=== PATIENT | female | born 1975 | race Two or more races ===

== ENCOUNTER → 2016-10-28 08:55 | Outpatient (CLI) | payer OTHER ==
[2016-03-13 07:19] VITALS: BMI 43.3
[~2016-10-28 08:55] MED LIST: COZAAR100 MG PO; FLORINEF 0.1 M0.1 MG PO; HYDROCODONE-APA1 TAB PO; KEFLEX500 MG PO; KLONOPIN1 MG PO; LITHIUM CARBON300 MG PO; NORCO 10/325 TA1 TA1 PO; PRINIVIL20 MG PO; PROPRANOLOL HCL20 MG PO; PROZAC20 MG PO; PROZAC40 MG PO; SEROQUEL XR150 MG PO; SEROQUEL XR300 MG PO; TENORMIN100 MG PO; VALIUM10 MG PO; ZOCOR20 MG PO
== END | disposition home or self-care (01) ==
LOC: D.RAD 08:55
DX: R11.2 Nausea with vomiting, unspecified (principal); R10.11 Right upper quadrant pain; R52 Pain, unspecified; R63.4 Abnormal weight loss

== ENCOUNTER → 2016-10-30 07:12 | Outpatient (CLI) | payer OTHER ==
[2016-03-13 07:19] VITALS: BMI 43.3
[2016-10-30 08:02] LABS: ALBUMIN 3.1 g/dL (3.4-5.0); ALKALINE PHOSPHATASE 87 U/L (46-116); ALT (SGPT) 15 U/L (10-68); PROTEIN - SERUM 7.3 g/dL (6.4-8.2)
[2016-10-30 08:06] LABS: BILIRUBIN - DIRECT < 0.05 mg/dL (0.00-0.30); BILIRUBIN - INDIRECT 0.15 mg/dL (0.00-1.00)
== END | disposition home or self-care (01) ==
LOC: D.US 07:12
PROVIDERS: Internal Medicine Gastroenterology
DX: K76.0 Fatty (change of) liver, not elsewhere classified (principal)

== ENCOUNTER 2016-12-29 17:33 | Emergency (ER) | payer OTHER ==
[2016-03-13 07:19] VITALS: BMI 43.3
[2016-12-29 19:12] LABS: BASOPHILS 0.1 % (0.0-2.0); HEMATOCRIT 39.9 % (36.0-48.0); HEMOGLOBIN 13.2 g/dL (12-16); IMMATURE GRANULOCYTES 0.3 % (0-5); LYMPHOCYTES 26.8 % (15-50); MCH 27.8 pg (26.0-34.0); MCHC 33.1 g/dL (31.0-37.0); MONOCYTES 8.4 % (2-11); NEUTROPHILS 63.4 % (40-80); PLATELET COUNT 312 10x3/uL (130-400); RBC 4.75 10x6/uL (4.00-5.40); RDW 14.2 % (11.5-14.5); WBC 14.3 10x3/uL (4.8-10.8)
[2016-12-29 19:29] LABS: ALBUMIN 3.6 g/dL (3.4-5.0); ANION GAP 14.1 mmol/L (8-16); BILIRUBIN - TOTAL 0.29 mg/dL (0.2-1.3); CALCIUM 8.8 mg/dL (8.5-10.1); CARBON DIOXIDE 24.1 mmol/L (21.0-32.0); CREATININE - SERUM 0.9 mg/dL (0.6-1.3); POTASSIUM - SERUM 3.2 mmol/L (3.5-5.1); PROTEIN - SERUM 8.3 g/dL (6.4-8.2)
[2016-12-29 19:31] LABS: APPEARANCE CLOUDY (CLEAR); BILIRUBIN NEGATIVE (NEGATIVE); COLOR YELLOW (YELLOW); GLUCOSE NEGATIVE (NEGATIVE); KETONE NEGATIVE (NEGATIVE); LEUKOCYTE ESTERASE TRACE (NEGATIVE); NITRITE NEGATIVE (NEGATIVE); PROTEIN NEGATIVE (NEGATIVE); SPECIFIC GRAVITY 1.015 (1.005-1.020); UROBILINOGEN NORMAL (NORMAL)
[2016-12-29 19:33] LABS: BACTERIA MANY /hpf (NONE SEEN); MUCUS >1+ /lpf (NONE SEEN); RED CELLS - URINE 0-5 /hpf (0-5)
== END 2016-12-30 01:26 | disposition home or self-care (01) ==
LOC: D.ER 17:33
PROVIDERS: Emergency Medicine
DX: N39.0 Urinary tract infection, site not specified (principal); K21.9 Gastro-esophageal reflux disease without esophagitis; I10 Essential (primary) hypertension; F17.200 Nicotine dependence, unspecified, uncomplicated

== ENCOUNTER 2017-03-12 20:39 | Emergency (ER) | payer OTHER ==
[2016-03-13 07:19] VITALS: BMI 43.3
[2017-03-12 21:13] LABS: BASOPHILS 0.1 % (0-2); EOSINOPHILS 1.1 % (0-7); HEMATOCRIT 39.7 % (36.0-48.0); HEMOGLOBIN 12.8 g/dL (12-16); IMMATURE GRANULOCYTES 0.2 % (0-5); LYMPHOCYTES 33.6 % (15-50); MCH 28.3 pg (26.0-34.0); MCHC 32.2 g/dL (31.0-37.0); MCV 87.8 fL (80.0-100.0); MONOCYTES 5.4 % (2-11); NEUTROPHILS 59.6 % (40-80); PLATELET COUNT 329 10x3/uL (130-400); RBC 4.52 10x6/uL (4.00-5.40); WBC 13.4 10x3/uL (4.8-10.8)
[2017-03-12 21:21] LABS: APPEARANCE CLEAR (CLEAR); BILIRUBIN NEGATIVE (NEGATIVE); COLOR YELLOW (YELLOW); GLUCOSE NEGATIVE (NEGATIVE); KETONE NEGATIVE (NEGATIVE); LEUKOCYTE ESTERASE TRACE (NEGATIVE); NITRITE NEGATIVE (NEGATIVE); PROTEIN NEGATIVE (NEGATIVE); SPECIFIC GRAVITY 1.015 (1.005-1.020); UROBILINOGEN NORMAL (NORMAL)
[2017-03-12 21:22] LABS: BACTERIA FEW /hpf (NONE SEEN); EPITHELIAL CELLS 0-5 /hpf (0-5); RED CELLS - URINE 0-5 /hpf (0-5); WHITE CELLS - URINE 0-5 /hpf (0-5)
[2017-03-12 21:34] LABS: HCG SERUM NEGATIVE (NEGATIVE)
[2017-03-12 21:38] LABS: ALBUMIN 3.5 g/dL (3.4-5.0); ANION GAP 13.1 mmol/L (8-16); BILIRUBIN - TOTAL 0.33 mg/dL (0.2-1.3); CALCIUM 8.6 mg/dL (8.5-10.1); CARBON DIOXIDE 22.5 mmol/L (21.0-32.0); CREATININE - SERUM 0.9 mg/dL (0.6-1.3); POTASSIUM - SERUM 3.6 mmol/L (3.5-5.1); PROTEIN - SERUM 7.7 g/dL (6.4-8.2)
== END 2017-03-12 23:15 | disposition home or self-care (01) ==
LOC: D.ER 20:39
PROVIDERS: Emergency Medicine
DX: R10.9 Unspecified abdominal pain (principal); K21.9 Gastro-esophageal reflux disease without esophagitis; I10 Essential (primary) hypertension; F17.200 Nicotine dependence, unspecified, uncomplicated

== ENCOUNTER 2017-06-04 20:40 | Emergency (ER) | payer OTHER ==
[2016-03-13 07:19] VITALS: BMI 43.3
[2017-06-04 22:36] LABS: APPEARANCE CLEAR (CLEAR); BILIRUBIN NEGATIVE (NEGATIVE); COLOR YELLOW (YELLOW); GLUCOSE NEGATIVE (NEGATIVE); KETONE NEGATIVE (NEGATIVE); LEUKOCYTE ESTERASE NEGATIVE (NEGATIVE); NITRITE NEGATIVE (NEGATIVE); PROTEIN NEGATIVE (NEGATIVE); SPECIFIC GRAVITY 1.025 (1.005-1.020); UROBILINOGEN NORMAL (NORMAL)
[2017-06-04 22:37] LABS: BACTERIA MODERATE /hpf (NONE SEEN); EPITHELIAL CELLS 0-5 /hpf (0-5); WHITE CELLS - URINE 0-5 /hpf (0-5)
== END 2017-06-04 23:43 | disposition home or self-care (01) ==
LOC: D.ER 20:40
PROVIDERS: Emergency Medicine
DX: M54.9 Dorsalgia, unspecified (principal); I10 Essential (primary) hypertension; K21.9 Gastro-esophageal reflux disease without esophagitis; R11.0 Nausea; F17.200 Nicotine dependence, unspecified, uncomplicated

== ENCOUNTER 2017-06-27 17:52 | Emergency (ER) | payer OTHER ==
[2016-03-13 07:19] VITALS: BMI 43.3
== END 2017-06-27 19:55 | disposition home or self-care (01) ==
LOC: D.ER 17:52
DX: M25.562 Pain in left knee (principal); I10 Essential (primary) hypertension

== ENCOUNTER 2017-07-27 11:23 | Emergency (ER) | payer OTHER ==
[2016-03-13 07:19] VITALS: BMI 43.3
[2017-07-27 11:53] LABS: BASOPHILS 0.2 % (0-2); EOSINOPHILS 0.9 % (0-7); HEMATOCRIT 41.6 % (36.0-48.0); HEMOGLOBIN 13.4 g/dL (12-16); IMMATURE GRANULOCYTES 0.1 % (0-5); LYMPHOCYTES 29.3 % (15-50); MCHC 32.2 g/dL (31.0-37.0); MCV 86.8 fL (80.0-100.0); MONOCYTES 7.3 % (2-11); NEUTROPHILS 62.2 % (40-80); PLATELET COUNT 361 10x3/uL (130-400); RBC 4.79 10x6/uL (4.00-5.40); RDW 14.7 % (11.5-14.5); WBC 9.8 10x3/uL (4.8-10.8)
[2017-07-27 12:17] LABS: ALBUMIN 3.6 g/dL (3.4-5.0); ALKALINE PHOSPHATASE 123 U/L (46-116); ALT (SGPT) 13 U/L (10-68); BILIRUBIN - TOTAL 0.16 mg/dL (0.2-1.3); CALC OSMOLALITY 272 mosm/kg (275-300); CALCIUM 9.2 mg/dL (8.5-10.1); CARBON DIOXIDE 26.5 mmol/L (21.0-32.0); CHLORIDE - SERUM 102 mmol/L (98-107); CREATININE - SERUM 0.8 mg/dL (0.6-1.3); GLUCOSE 94 mg/dL (74-106); POTASSIUM - SERUM 4.3 mmol/L (3.5-5.1); PROTEIN - SERUM 8.1 g/dL (6.4-8.2); SODIUM 137 mmol/L (136-145); UREA NITROGEN 9 mg/dL (7-18); eGFR NON AFRICAN AMERICAN 84 mL/min (90-120)
[2017-07-27 12:38] LABS: CHOL - HDL RATIO 8.1 ratio (2.3-4.1); CHOLESTEROL, TOTAL 187 mg/dL (0-200); CREATINE KINASE 50 UL (21-215); HDL CHOLESTEROL 23 mg/dL (32-96); LDL CHOLESTEROL 111 mg/dL (0-100); LDL-HDL RATIO 4.8 ratio (1.5-3.5); MAGNESIUM - SERUM 2.1 mg/dL (1.8-2.4); TRIGLYCERIDE 265 mg/dL (30-200)
[2017-07-27 12:39] LABS: TROPONIN-I < 0.017 ng/mL (0.000-0.060)
[2017-09-05] MEDS ORDERED: HYDROCODON-ACE1 EAC7 PO ×2 (10:04→10:05)
== END 2017-07-27 14:15 | disposition home or self-care (01) ==
LOC: D.ER 11:23
PROVIDERS: Emergency Medicine
DX: R07.9 Chest pain, unspecified (principal); F17.200 Nicotine dependence, unspecified, uncomplicated

== ENCOUNTER 2017-09-02 19:51 | Emergency (ER) | payer OTHER ==
[2016-03-13 07:19] VITALS: BMI 43.3
[2017-09-02 20:51] LABS: BASOPHILS 0.2 % (0-2); HEMATOCRIT 39.7 % (36.0-48.0); HEMOGLOBIN 12.9 g/dL (12-16); IMMATURE GRANULOCYTES 0.2 % (0-5); MCH 28.2 pg (26.0-34.0); MCHC 32.5 g/dL (31.0-37.0); MCV 86.7 fL (80.0-100.0); MEAN PLATELET VOLUME 9.1 fL (7.4-10.4); MONOCYTES 8.6 % (2-11); PLATELET COUNT 300 10x3/uL (130-400); RBC 4.58 10x6/uL (4.00-5.40); WBC 12.9 10x3/uL (4.8-10.8)
[2017-09-02 20:53] LABS: APPEARANCE CLEAR (CLEAR); COLOR YELLOW (YELLOW); NITRITE NEGATIVE (NEGATIVE)
[2017-09-02 20:54] LABS: BILIRUBIN NEGATIVE (NEGATIVE); GLUCOSE NEGATIVE (NEGATIVE); KETONE NEGATIVE (NEGATIVE); PROTEIN TRACE mg/dL (NEGATIVE); UROBILINOGEN NORMAL (NORMAL)
[2017-09-02 21:51] LABS: ALBUMIN 3.6 g/dL (3.4-5.0); ALKALINE PHOSPHATASE 83 U/L (46-116); ALT (SGPT) 11 U/L (10-68); AMYLASE - SERUM 38 U/L (25-115); BILIRUBIN - TOTAL 0.26 mg/dL (0.2-1.3); CALC OSMOLALITY 272 mosm/kg (275-300); CALCIUM 8.5 mg/dL (8.5-10.1); CHLORIDE - SERUM 103 mmol/L (98-107); CREATININE - SERUM 0.7 mg/dL (0.6-1.3); GLUCOSE 89 mg/dL (74-106); LIPASE 117 U/L (73-393); POTASSIUM - SERUM 3.4 mmol/L (3.5-5.1); PROTEIN - SERUM 7.3 g/dL (6.4-8.2); SODIUM 138 mmol/L (136-145); UREA NITROGEN 7 mg/dL (7-18); eGFR NON AFRICAN AMERICAN > 90 mL/min (90-120)
[2017-09-02 21:57] LABS: HCG SERUM NEGATIVE (NEGATIVE)
[2017-09-03] MEDS ORDERED: ZESTRIL20 MG PO (23:12)
[2017-09-03] MEDS ORDERED: CORLANOR PO (23:13)
[2017-09-03] MEDS ORDERED: CARDIZEM CD240 MG PO (23:15)
[2017-09-05] MEDS ORDERED: HYDROCODON-ACE1 EAC7 PO ×2 (10:04→10:05)
== END 2017-09-02 23:12 | disposition home or self-care (01) ==
LOC: D.ER 19:51
PROVIDERS: Emergency Medicine; Physician Assistant
DX: R10.31 Right lower quadrant pain (principal); R11.2 Nausea with vomiting, unspecified; I10 Essential (primary) hypertension; N28.1 Cyst of kidney, acquired; R10.9 Unspecified abdominal pain; F17.200 Nicotine dependence, unspecified, uncomplicated

== ENCOUNTER 2017-09-03 00:24 | Emergency (ER) | payer OTHER ==
[2016-03-13 07:19] VITALS: BMI 43.3
[2017-09-03 00:59] LABS: BASOPHILS 0.2 % (0-2); EOSINOPHILS 0.8 % (0-7); HEMATOCRIT 39.2 % (36.0-48.0); HEMOGLOBIN 12.5 g/dL (12-16); IMMATURE GRANULOCYTES 0.4 % (0-5); LYMPHOCYTES 31.4 % (15-50); MCH 27.7 pg (26.0-34.0); MCHC 31.9 g/dL (31.0-37.0); MCV 86.9 fL (80.0-100.0); MEAN PLATELET VOLUME 8.8 fL (7.4-10.4); MONOCYTES 5.6 % (2-11); NEUTROPHILS 61.6 % (40-80); PLATELET COUNT 313 10x3/uL (130-400); RBC 4.51 10x6/uL (4.00-5.40); RDW 14.9 % (11.5-14.5); WBC 12.9 10x3/uL (4.8-10.8)
[2017-09-03 01:07] LABS: HCG SERUM NEGATIVE (NEGATIVE)
[2017-09-03] MEDS ORDERED: ZESTRIL20 MG PO (23:12)
[2017-09-03] MEDS ORDERED: CORLANOR PO (23:13)
[2017-09-03] MEDS ORDERED: CARDIZEM CD240 MG PO (23:15)
[2017-09-05] MEDS ORDERED: HYDROCODON-ACE1 EAC7 PO ×2 (10:04→10:05)
== END 2017-09-03 02:07 | disposition home or self-care (01) ==
LOC: D.ER 00:24
PROVIDERS: Emergency Medicine
DX: R10.31 Right lower quadrant pain (principal)

== ENCOUNTER 2018-02-04 19:39 | Emergency (ER) | payer MEDICARE ==
[2017-09-03 23:27] VITALS: BMI 37.0
[~2018-02-04 19:39] MED LIST changes: +CARDIZEM CD240 MG PO; +CORLANOR PO; +HYDROCODON-ACE1 EAC7 PO; +ZESTRIL20 MG PO
[2018-02-04 20:30] LABS: BASOPHILS 0.2 % (0-2); EOSINOPHILS 2.8 % (0-7); HEMATOCRIT 36.6 % (36.0-48.0); HEMOGLOBIN 12.1 g/dL (12-16); IMMATURE GRANULOCYTES 0.2 % (0-5); LYMPHOCYTES 29.5 % (15-50); MCH 29.5 pg (26.0-34.0); MCHC 33.1 g/dL (31.0-37.0); MCV 89.3 fL (80.0-100.0); MEAN PLATELET VOLUME 8.6 fL (7.4-10.4); MONOCYTES 7.1 % (2-11); NEUTROPHILS 60.2 % (40-80); PLATELET COUNT 340 10x3/uL (130-400); RDW 13.3 % (11.5-14.5); WBC 13.4 10x3/uL (4.8-10.8)
[2018-02-04 21:00] LABS: ALBUMIN 3.1 g/dL (3.4-5.0); ALKALINE PHOSPHATASE 104 U/L (46-116); ALT (SGPT) 14 U/L (10-68); BILIRUBIN - TOTAL 0.18 mg/dL (0.2-1.3); CALC OSMOLALITY 271 mosm/kg (275-300); CALCIUM 8.2 mg/dL (8.5-10.1); CARBON DIOXIDE 22.4 mmol/L (21.0-32.0); CHLORIDE - SERUM 101 mmol/L (98-107); CREATININE - SERUM 0.8 mg/dL (0.6-1.3); GLUCOSE 86 mg/dL (74-106); POTASSIUM - SERUM 3.5 mmol/L (3.5-5.1); PROTEIN - SERUM 7.2 g/dL (6.4-8.2); SODIUM 137 mmol/L (136-145); UREA NITROGEN 11 mg/dL (7-18); eGFR NON AFRICAN AMERICAN 84 mL/min (90-120)
[2018-02-04 21:12] LABS: CHOL - HDL RATIO 8.2 ratio (2.3-4.1); CHOLESTEROL, TOTAL 204 mg/dL (0-200); CREATINE KINASE 44 UL (21-215); HDL CHOLESTEROL 25 mg/dL (32-96); LDL CHOLESTEROL 118 mg/dL (0-100); LDL-HDL RATIO 4.7 ratio (1.5-3.5); TRIGLYCERIDE 307 mg/dL (30-200)
[2018-02-04 21:14] LABS: TROPONIN-I < 0.017 ng/mL (0.000-0.060)
== END 2018-02-04 21:32 | disposition home or self-care (01) ==
LOC: D.ER 19:39
PROVIDERS: Emergency Medicine
DX: R07.9 Chest pain, unspecified (principal); F17.200 Nicotine dependence, unspecified, uncomplicated

== ENCOUNTER 2018-05-19 15:06 | Inpatient (IN) | payer MEDICARE ==
[~2018-05-19] VITALS: Ht 162.6 cm; Wt 112.0 kg
--- NOTE | ~2018-05-19 | EC ---
PATIENT:VINCENT NAGY DATE OF SERVICE: 05/19/18 SEX: F MEDICAL RECORD: [id number] DATE OF : 77 LOCATION:D.M2 D.212 AGE OF PATIENT: 43 ADMISSION DATE: 05/20/18 REFERRING PHYSICIAN: INTERPRETING PHYSICIAN: GUIDO MEREDITH MD ECHOCARDIOGRAM REPORT ECHO CHARGES 4 ECHO COMPLETE Date: 05/20 CLINICAL DIAGNOSIS: HTN ECHOCARDIOGRAPHIC MEASUREMENTS (adult normal given) AC root (d.<3.7cm) 2.9 cm LV Septum d (<1.2 cm> 1.7 cm Valve Excursion 2.1 cm LV Septum (systole) 2.4 cm Left Atria (s.<4.0cm> 3.7 cm LVPW d(<1.2cm) 1.7 cm RV (d.<2.3cm) 2.9 cm LVPW (sytole) 2.4 cm LV diastole(<5.6CM) 4.9 cm MV E-F(>70mm/sec) cm LV systole 2.5 cm LVOT Diameter 1.9 cm MV exc.(>10mm) cm Est.ejection fraction (50-75%) % DOPPLER: LVIT cm/sec A 56.0 cm/sec E 88.0 cm/sec LA cm/sec RVSP 17.0 mmHg LVOT 89.0 cm/sec AOP1/2T m/s Asc. Ao 130 cm/sec RVOT 62.0 cm/sec RA cm/sec PA 61.0 cm/sec AV Gradient Peak 6.8 mmHg AV Mean 2.9 mmHg AV Area 1.8 cm MV Gradient Peak 4.1 mmHg MV Mean 1.4 mmHg MV Area cm COMMENTS: Table Cut Off Saw Operator: Kelsey GONZALEZOE Director Digital Analytics: 1 Dr. Meredith TAPE# PACS Pericardial Effusion N DATE OF SERVICE: 05/20/2018 PROCEDURE: Echocardiogram. FINDINGS: 1. Left ventricular chamber size is within normal limits. Left ventricular systolic function is normal. Overall ejection fraction estimated at 60%. 2. Left atrium, right atrium, and right ventricle chamber sizes are within normal limits. 3. Valvular structures have normal structure and motion. ECHOCARDIOGRAM REPORT [id number] VINCENT NAGY 4. Doppler interrogation reveals no significant valvular insufficiency or stenosis. 5. No evidence of pericardial effusion or left ventricular thrombus. TRANSINT:[id number] Voice Confirmation ID: [id number] DOCUMENT ID: [id number] GUIDO MEREDITH MD at 1208 CC: IVONNE HART DO [id number] DICTATION DATE: 05/20/18 1216 MANAGER CALL CENTER: 05/20/18 1345 ADM IN [place] [id number] [place] [address]
[2018-05-19 15:41] LABS: BASOPHILS 0.2 % (0-2); HEMATOCRIT 40.1 % (36.0-48.0); HEMOGLOBIN 13.7 g/dL (12-16); IMMATURE GRANULOCYTES 0.3 % (0-5); MCH 29.8 pg (26.0-34.0); MCHC 34.2 g/dL (31.0-37.0); MCV 87.4 fL (80.0-100.0); MEAN PLATELET VOLUME 8.9 fL (7.4-10.4); MONOCYTES 7.7 % (2-11); NEUTROPHILS 63.8 % (40-80); PLATELET COUNT 293 10x3/uL (130-400); RBC 4.59 10x6/uL (4.00-5.40); RDW 13.5 % (11.5-14.5); WBC 10.8 10x3/uL (4.8-10.8)
[2018-05-19 16:00] VITALS: BP 186/110
[2018-05-19 16:15] VITALS: BP 149/102
[2018-05-19 16:15] LABS: ALBUMIN 3.8 g/dL (3.4-5.0); ALKALINE PHOSPHATASE 96 U/L (46-116); ALT (SGPT) 13 U/L (10-68); BILIRUBIN - TOTAL 0.35 mg/dL (0.2-1.3); CALC OSMOLALITY 271 mosm/kg (275-300); CALCIUM 8.6 mg/dL (8.5-10.1); CARBON DIOXIDE 26.7 mmol/L (21.0-32.0); CHLORIDE - SERUM 101 mmol/L (98-107); CREATININE - SERUM 0.7 mg/dL (0.6-1.3); GLUCOSE 100 mg/dL (74-106); POTASSIUM - SERUM 3.4 mmol/L (3.5-5.1); PROTEIN - SERUM 7.9 g/dL (6.4-8.2); SODIUM 137 mmol/L (136-145); UREA NITROGEN 6 mg/dL (7-18); eGFR NON AFRICAN AMERICAN > 90 mL/min (90-120)
[2018-05-19 16:25] LABS: CKMB 0.1 U/L (0.0-3.6); CREATINE KINASE 60 UL (21-215); PRO BNP 322 pg/mL (0-125); TROPONIN-I < 0.017 ng/mL (0.000-0.060)
[2018-05-19 16:30] VITALS: BP 206/140
[2018-05-19 16:30] LABS: AMYLASE - SERUM 53 U/L (25-115); LIPASE 213 U/L (73-393)
[2018-05-19 17:00] VITALS: BP 155/99
[2018-05-19 17:30] VITALS: BP 155/89
[2018-05-19 20:56] LABS: CKMB 0.1 U/L (0.0-3.6); CREATINE KINASE 40 UL (21-215); TROPONIN-I < 0.017 ng/mL (0.000-0.060)
[2018-05-19 23:18] VITALS: BP 145/82
[2018-05-20] VITALS (7 sets, daily range): BP systolic 140–203; BP diastolic 72–97; BMI 42.5; BMI 42.4
[2018-05-20 03:24] LABS: BASOPHILS 0.1 % (0-2); EOSINOPHILS 1.3 % (0-7); HEMATOCRIT 36.1 % (36.0-48.0); HEMOGLOBIN 11.9 g/dL (12-16); IMMATURE GRANULOCYTES 0.2 % (0-5); LYMPHOCYTES 37.2 % (15-50); MCH 29.4 pg (26.0-34.0); MCV 89.1 fL (80.0-100.0); MEAN PLATELET VOLUME 8.6 fL (7.4-10.4); MONOCYTES 7.2 % (2-11); PLATELET COUNT 244 10x3/uL (130-400); RBC 4.05 10x6/uL (4.00-5.40); RDW 13.5 % (11.5-14.5); WBC 9.7 10x3/uL (4.8-10.8)
[2018-05-20 03:48] LABS: ALKALINE PHOSPHATASE 78 U/L (46-116); ALT (SGPT) 10 U/L (10-68); BILIRUBIN - TOTAL 0.37 mg/dL (0.2-1.3); CALC OSMOLALITY 269 mosm/kg (275-300); CALCIUM 7.6 mg/dL (8.5-10.1); CARBON DIOXIDE 30.1 mmol/L (21.0-32.0); CHLORIDE - SERUM 101 mmol/L (98-107); CKMB 0.1 U/L (0.0-3.6); CREATINE KINASE 37 UL (21-215); CREATININE - SERUM 0.7 mg/dL (0.6-1.3); GLUCOSE 97 mg/dL (74-106); POTASSIUM - SERUM 3.2 mmol/L (3.5-5.1); PROTEIN - SERUM 6.4 g/dL (6.4-8.2); SODIUM 136 mmol/L (136-145); TROPONIN-I < 0.017 ng/mL (0.000-0.060); UREA NITROGEN 6 mg/dL (7-18); eGFR NON AFRICAN AMERICAN > 90 mL/min (90-120)
[2018-05-20 09:23] LABS: CKMB 0.1 U/L (0.0-3.6); CREATINE KINASE 44 UL (21-215); TROPONIN-I < 0.017 ng/mL (0.000-0.060)
[2018-05-21 06:11] VITALS: BP 149/80
[2018-05-21 08:27] VITALS: BP 127/66
[2018-05-21 09:20] LABS: BASOPHILS 0.1 % (0-2); EOSINOPHILS 0.9 % (0-7); HEMATOCRIT 35.3 % (36.0-48.0); HEMOGLOBIN 11.6 g/dL (12-16); IMMATURE GRANULOCYTES 0.2 % (0-5); LYMPHOCYTES 25.5 % (15-50); MCH 29.4 pg (26.0-34.0); MCHC 32.9 g/dL (31.0-37.0); MCV 89.6 fL (80.0-100.0); MEAN PLATELET VOLUME 8.6 fL (7.4-10.4); MONOCYTES 6.4 % (2-11); NEUTROPHILS 66.9 % (40-80); PLATELET COUNT 254 10x3/uL (130-400); RBC 3.94 10x6/uL (4.00-5.40); RDW 13.7 % (11.5-14.5); WBC 10.4 10x3/uL (4.8-10.8)
[2018-05-21 09:31] LABS: CALC OSMOLALITY 276 mosm/kg (275-300); CALCIUM 8.2 mg/dL (8.5-10.1); CARBON DIOXIDE 30.2 mmol/L (21.0-32.0); CHLORIDE - SERUM 103 mmol/L (98-107); CREATININE - SERUM 0.7 mg/dL (0.6-1.3); GLUCOSE 97 mg/dL (74-106); POTASSIUM - SERUM 3.2 mmol/L (3.5-5.1); SODIUM 139 mmol/L (136-145); eGFR NON AFRICAN AMERICAN > 90 mL/min (90-120)
[2018-05-21 09:32] LABS: UREA NITROGEN 10 mg/dL (7-18)
[2018-05-21 09:43] LABS: ALKALINE PHOSPHATASE 78 U/L (46-116); ALT (SGPT) 10 U/L (10-68); BILIRUBIN - TOTAL 0.44 mg/dL (0.2-1.3); PROTEIN - SERUM 6.6 g/dL (6.4-8.2)
[2018-05-21 11:33] VITALS: BP 147/77
[2018-05-21 13:08] LABS: APPEARANCE SL CLDY (CLEAR); COLOR DK YELLOW (YELLOW); SPECIFIC GRAVITY 1.015 (1.005-1.020)
[2018-05-21 13:09] LABS: BACTERIA FEW /hpf (NONE SEEN); BILIRUBIN NEGATIVE (NEGATIVE); GLUCOSE NEGATIVE (NEGATIVE); KETONE NEGATIVE (NEGATIVE); NITRITE NEGATIVE (NEGATIVE); PROTEIN NEGATIVE (NEGATIVE); RED CELLS - URINE 0-5 /hpf (0-5); WHITE CELLS - URINE 0-5 /hpf (0-5)
[2018-05-21 16:14] VITALS: BP 136/72
[2018-05-21 19:50] VITALS: Ht 162.6 cm; Wt 112.0 kg
[2018-05-21 21:00] VITALS: BP 127/79
[2018-05-22 02:11] VITALS: BP 134/78
[2018-05-22 05:28] LABS: BASOPHILS 0.2 % (0-2); EOSINOPHILS 1.2 % (0-7); HEMATOCRIT 37.4 % (36.0-48.0); HEMOGLOBIN 12.2 g/dL (12-16); IMMATURE GRANULOCYTES 0.2 % (0-5); LYMPHOCYTES 31.7 % (15-50); MCH 29.3 pg (26.0-34.0); MCHC 32.6 g/dL (31.0-37.0); MCV 89.9 fL (80.0-100.0); MONOCYTES 8.7 % (2-11); PLATELET COUNT 291 10x3/uL (130-400); RBC 4.16 10x6/uL (4.00-5.40); RDW 13.8 % (11.5-14.5); WBC 10.2 10x3/uL (4.8-10.8)
[2018-05-22 05:51] LABS: ALBUMIN 2.9 g/dL (3.4-5.0); ALKALINE PHOSPHATASE 93 U/L (46-116); ALT (SGPT) 10 U/L (10-68); BILIRUBIN - TOTAL 0.23 mg/dL (0.2-1.3); CALC OSMOLALITY 274 mosm/kg (275-300); CALCIUM 8.1 mg/dL (8.5-10.1); CARBON DIOXIDE 26.2 mmol/L (21.0-32.0); CHLORIDE - SERUM 104 mmol/L (98-107); CREATININE - SERUM 0.7 mg/dL (0.6-1.3); GLUCOSE 93 mg/dL (74-106); POTASSIUM - SERUM 3.7 mmol/L (3.5-5.1); PROTEIN - SERUM 6.5 g/dL (6.4-8.2); SODIUM 138 mmol/L (136-145); UREA NITROGEN 11 mg/dL (7-18); eGFR NON AFRICAN AMERICAN > 90 mL/min (90-120)
[2018-05-22 06:28] VITALS: BP 139/77
[2018-05-22 08:03] VITALS: BP 140/83
[2018-05-22] MEDS ORDERED: PHENERGAN25 M1 PO (12:27)
[2018-05-22] MEDS ORDERED: PROTONIX40 MG PO (12:29)
[2018-05-22] MEDS ORDERED: CARAFATE1 G/10 ML PO (12:29)
[2018-05-22 15:21] VITALS: BP 119/68
== END 2018-05-22 15:48 | disposition home or self-care (01) | DRG 392 ==
LOC: D.ER 15:06 → OBSVTIME 20:46 → D.EDHOLD 20:46 → D.M2 20:46
PROVIDERS: Family Medicine
DX: K21.9 Gastro-esophageal reflux disease without esophagitis (principal); K22.4 Dyskinesia of esophagus; I10 Essential (primary) hypertension; Z91.128 Patient's intentional underdosing of medication regimen for other reason

== ENCOUNTER 2018-06-27 19:18 | Emergency (ER) | payer MEDICARE ==
[~2018-06-27] VITALS: Ht 162.6 cm; Wt 109.1 kg
[~2018-06-27 19:18] MED LIST changes: +CARAFATE1 G/10 ML PO; +PHENERGAN25 M1 PO; +PROTONIX40 MG PO
[2018-06-27 19:23] VITALS: Ht 162.6 cm; Wt 109.1 kg
[2018-06-27 20:05] LABS: BASOPHILS 0.1 % (0-2); EOSINOPHILS 0.6 % (0-7); HEMATOCRIT 39.4 % (36.0-48.0); HEMOGLOBIN 13.2 g/dL (12-16); IMMATURE GRANULOCYTES 0.2 % (0-5); MCH 29.7 pg (26.0-34.0); MCHC 33.5 g/dL (31.0-37.0); MCV 88.7 fL (80.0-100.0); MEAN PLATELET VOLUME 8.8 fL (7.4-10.4); MONOCYTES 5.1 % (2-11); PLATELET COUNT 276 10x3/uL (130-400); RBC 4.44 10x6/uL (4.00-5.40); RDW 13.9 % (11.5-14.5); WBC 14.2 10x3/uL (4.8-10.8)
[2018-06-27 20:17] LABS: ALBUMIN 3.5 g/dL (3.4-5.0); ALKALINE PHOSPHATASE 89 U/L (46-116); ALT (SGPT) 18 U/L (10-68); AMYLASE - SERUM 54 U/L (25-115); BILIRUBIN - TOTAL 0.42 mg/dL (0.2-1.3); CALC OSMOLALITY 274 mosm/kg (275-300); CALCIUM 8.6 mg/dL (8.5-10.1); CARBON DIOXIDE 25.2 mmol/L (21.0-32.0); CHLORIDE - SERUM 102 mmol/L (98-107); CREATININE - SERUM 0.8 mg/dL (0.6-1.3); GLUCOSE 105 mg/dL (74-106); LIPASE 135 U/L (73-393); POTASSIUM - SERUM 3.6 mmol/L (3.5-5.1); PROTEIN - SERUM 7.9 g/dL (6.4-8.2); SODIUM 138 mmol/L (136-145); UREA NITROGEN 11 mg/dL (7-18); eGFR NON AFRICAN AMERICAN 83 mL/min (90-120)
[2018-06-27 21:19] LABS: APPEARANCE CLEAR (CLEAR); BILIRUBIN NEGATIVE (NEGATIVE); COLOR DK YELLOW (YELLOW); GLUCOSE NEGATIVE (NEGATIVE); KETONE NEGATIVE (NEGATIVE); NITRITE NEGATIVE (NEGATIVE); PROTEIN 1+ mg/dL (NEGATIVE); SPECIFIC GRAVITY 1.015 (1.005-1.020); UROBILINOGEN NORMAL (NORMAL)
[2018-06-27 21:22] LABS: BACTERIA MODERATE /hpf (NONE SEEN); MUCUS <1+ /lpf (NONE SEEN); RED CELLS - URINE 0-5 /hpf (0-5); WHITE CELLS - URINE 0-5 /hpf (0-5)
[2018-06-27] MEDS ORDERED: OMEPRAZOLE40 MG PO (21:33)
[2018-06-27 21:52] VITALS: BP 157/81
== END 2018-06-27 21:52 | disposition home or self-care (01) ==
LOC: D.ER 19:18
PROVIDERS: Emergency Medicine
DX: R10.11 Right upper quadrant pain (principal); R11.2 Nausea with vomiting, unspecified; I10 Essential (primary) hypertension; K21.9 Gastro-esophageal reflux disease without esophagitis; F17.200 Nicotine dependence, unspecified, uncomplicated

== ENCOUNTER → 2018-09-01 08:25 | Outpatient (CLI) | payer MEDICARE ==
[2018-06-27 19:23] VITALS: BMI 41.3
--- NOTE | ~2018-09-01 | EC ---
PATIENT:VINCENT NAGY DATE OF SERVICE: 09/01/18 SEX: F MEDICAL RECORD: [id number] DATE OF : [birth year] LOCATION:D.[facility] AGE OF PATIENT: 43 ADMISSION DATE: 09/01/18 REFERRING PHYSICIAN: INTERPRETING PHYSICIAN: GUIDO MEREDITH MD ECHOCARDIOGRAM REPORT ECHO CHARGES 4 ECHO COMPLETE Date: 09/01/18 CLINICAL DIAGNOSIS: HTN, ECHOCARDIOGRAPHIC MEASUREMENTS (adult normal given) AC root (d.<3.7cm) 3.6 cm LV Septum d (<1.2 cm> 1.1 cm Valve Excursion 1.2 cm LV Septum (systole) 1.2 cm Left Atria (s.<4.0cm> 3.9 cm LVPW d(<1.2cm) 1.4 cm RV (d.<2.3cm) 2.5 cm LVPW (sytole) 1.7 cm LV diastole(<5.6CM) 5.9 cm MV E-F(>70mm/sec) cm LV systole 5.3 cm LVOT Diameter 1.3 cm MV exc.(>10mm) cm Est.ejection fraction (50-75%) % DOPPLER: LVIT cm/sec A 73 cm/sec E 81 cm/sec LA cm/sec RVSP 15.9 mmHg LVOT 99 cm/sec AOP1/2T m/s Asc. Ao 121 cm/sec RVOT 59 cm/sec RA cm/sec PA 69 cm/sec AV Gradient Peak 5.9 mmHg AV Mean 3.1 mmHg AV Area 1.3 cm MV Gradient Peak 4.3 mmHg MV Mean 2.0 mmHg MV Area cm COMMENTS: Manager Call Center: Gen [facility] Bankruptcy Paralegal: 1 Dr. Meredith TAPE# PACS Pericardial Effusion N DATE OF SERVICE: FINDINGS: 1. Left ventricular chamber size is within normal limits. Left ventricular systolic function is normal. Overall ejection fraction estimated at 60%. 2. Left atrium, right atrium, and right ventricular chamber sizes are within normal limits. 3. Valvular structures have normal structure and motion. 4. Doppler interrogation reveals only trace tricuspid regurgitation. No other valvular insufficiency or stenosis. Pulmonary systolic pressure is estimated 16 ECHOCARDIOGRAM REPORT [id number] VINCENT NAGY mmHg. 5. No evidence of pericardial effusion or left ventricular thrombus. TRANSINT:[id number] Voice Confirmation ID: [id number] DOCUMENT ID: [id number] GUIDO MEREDITH MD at 1925 CC: [id number] DICTATION DATE: 09/01/18 1105 SEPHORA PRODUCT CONSULTANT: 09/01/18 1130 REG [facility] [address] [place] [address]
[~2018-09-01 08:25] MED LIST changes: +OMEPRAZOLE40 MG PO
== END | disposition home or self-care (01) ==
LOC: D.ECHO 08-28 09:00
DX: I10 Essential (primary) hypertension (principal)

== ENCOUNTER → 2018-09-28 10:35 | Outpatient (CLI) | payer MEDICARE ==
[2018-06-27 19:23] VITALS: BMI 41.3
== END | disposition home or self-care (01) ==
LOC: D.MRI 10:35
DX: M54.2 Cervicalgia (principal)

== ENCOUNTER 2019-02-16 15:51 | Emergency (ER) | payer MEDICARE ==
[~2019-02-16] VITALS: Ht 162.6 cm; Wt 110.5 kg
[2019-02-16 16:03] VITALS: Ht 162.6 cm; Wt 110.5 kg
[2019-02-16] MEDS ORDERED: PEPCID40 MG PO (16:07)
[2019-02-16] MEDS ORDERED: MICARDIS40 MG PO (16:08)
[2019-02-16] MEDS ORDERED: TOPROL XL100 MG PO (16:09)
[2019-02-16] MEDS ORDERED: ZOFRAN4 MG PO (16:09)
[2019-02-16 16:24] LABS: BASOPHILS 0.2 % (0-2); EOSINOPHILS 1.1 % (0-7); HEMATOCRIT 36.4 % (36.0-48.0); HEMOGLOBIN 12.2 g/dL (12-16); IMMATURE GRANULOCYTES 0.1 % (0-5); LYMPHOCYTES 31.4 % (15-50); MCH 30.1 pg (26.0-34.0); MCHC 33.5 g/dL (31.0-37.0); MCV 89.9 fL (80.0-100.0); MEAN PLATELET VOLUME 8.8 fL (7.4-10.4); MONOCYTES 7.4 % (2-11); NEUTROPHILS 59.8 % (40-80); PLATELET COUNT 318 10x3/uL (130-400); RBC 4.05 10x6/uL (4.00-5.40); RDW 13.8 % (11.5-14.5); WBC 9.4 10x3/uL (4.8-10.8)
[2019-02-16 16:35] LABS: APTT 32.4 SECONDS (22.8-39.4); PROTIME 12.7 SECONDS (11.6-15.0)
[2019-02-16 16:42] LABS: ALBUMIN 3.5 g/dL (3.4-5.0); ALKALINE PHOSPHATASE 78 U/L (46-116); ALT (SGPT) 15 U/L (10-68); BILIRUBIN - TOTAL 0.26 mg/dL (0.2-1.3); CALC OSMOLALITY 276 mosm/kg (275-300); CALCIUM 8.9 mg/dL (8.5-10.1); CARBON DIOXIDE 29.1 mmol/L (21.0-32.0); CHLORIDE - SERUM 106 mmol/L (98-107); CREATININE - SERUM 0.8 mg/dL (0.6-1.3); GLUCOSE 93 mg/dL (74-106); POTASSIUM - SERUM 3.5 mmol/L (3.5-5.1); PROTEIN - SERUM 7.3 g/dL (6.4-8.2); SODIUM 140 mmol/L (136-145); UREA NITROGEN 8 mg/dL (7-18); eGFR NON AFRICAN AMERICAN 83 mL/min (90-120)
[2019-02-16 16:53] LABS: CKMB 0.2 U/L (0.0-3.6); CREATINE KINASE 67 UL (21-215); MAGNESIUM - SERUM 2.2 mg/dL (1.8-2.4); TROPONIN-I < 0.017 ng/mL (0.000-0.060)
[2019-02-16 18:50] VITALS: BP 144/60
== END 2019-02-16 18:52 | disposition home or self-care (01) ==
LOC: D.ER 15:51
PROVIDERS: Family Medicine
DX: R07.9 Chest pain, unspecified (principal); I10 Essential (primary) hypertension

== ENCOUNTER 2019-04-26 12:48 | Emergency (ER) | payer MEDICARE ==
[~2019-04-26] VITALS: Ht 162.6 cm; Wt 109.1 kg
[~2019-04-26 12:48] MED LIST changes: +MICARDIS40 MG PO; +PEPCID40 MG PO; +TOPROL XL100 MG PO; +ZOFRAN4 MG PO
[2019-04-26] MEDS ORDERED: HYDROCODON-ACE1 EA10 PO (12:57)
[2019-04-26] MEDS ORDERED: ALBUTEROL SULF8.5 GM INH (12:58)
[2019-04-26] MEDS ORDERED: KLONOPIN1 MG PO (12:58)
[2019-04-26] MEDS ORDERED: SYMBICORT 16010.2 GM INH (12:58)
[2019-04-26 15:04] LABS: BASOPHILS 0.2 % (0-2); EOSINOPHILS 0.8 % (0-7); HEMATOCRIT 36.8 % (36.0-48.0); HEMOGLOBIN 12.2 g/dL (12-16); IMMATURE GRANULOCYTES 0.3 % (0-5); LYMPHOCYTES 26.2 % (15-50); MCH 29.7 pg (26.0-34.0); MCHC 33.2 g/dL (31.0-37.0); MCV 89.5 fL (80.0-100.0); MEAN PLATELET VOLUME 9.1 fL (7.4-10.4); MONOCYTES 7.3 % (2-11); NEUTROPHILS 65.2 % (40-80); PLATELET COUNT 325 10x3/uL (130-400); RBC 4.11 10x6/uL (4.00-5.40); RDW 13.7 % (11.5-14.5); WBC 9.9 10x3/uL (4.8-10.8)
[2019-04-26 15:30] LABS: ALBUMIN 3.5 g/dL (3.4-5.0); ANION GAP 10.9 mmol/L (8-16); BILIRUBIN - TOTAL 0.36 mg/dL (0.2-1.3); CALCIUM 8.6 mg/dL (8.5-10.1); CARBON DIOXIDE 27.7 mmol/L (21.0-32.0); CREATININE - SERUM 0.9 mg/dL (0.6-1.3); POTASSIUM - SERUM 3.6 mmol/L (3.5-5.1); PROTEIN - SERUM 7.2 g/dL (6.4-8.2)
[2019-04-26 15:49] VITALS: Ht 162.6 cm; Wt 109.1 kg
[2019-04-26 16:53] LABS: CKMB 0.1 U/L (0.0-3.6); CREATINE KINASE 56 UL (21-215); PRO BNP 255 pg/mL (0-125); TROPONIN-I < 0.017 ng/mL (0.000-0.060)
[2019-04-26 20:49] VITALS: BP 150/102
== END 2019-04-26 20:49 | disposition home or self-care (01) ==
LOC: D.ER 12:48
PROVIDERS: Family Medicine
DX: I49.8 Other specified cardiac arrhythmias (principal); M54.9 Dorsalgia, unspecified; R55 Syncope and collapse; I10 Essential (primary) hypertension; K21.9 Gastro-esophageal reflux disease without esophagitis; F17.200 Nicotine dependence, unspecified, uncomplicated

== ENCOUNTER → 2019-05-07 14:05 | Outpatient (CLI) | payer MEDICARE ==
[~2019-05-07 14:05] MED LIST changes: +ALBUTEROL SULF8.5 GM INH; +HYDROCODON-ACE1 EA10 PO; +SYMBICORT 16010.2 GM INH
== END | disposition home or self-care (01) ==
LOC: D.RT 14:05
PROVIDERS: ATTEND Internal Medicine Pulmonary Disease
DX: R93.89 Abnormal findings on diagnostic imaging of other specified body structures (principal)

== ENCOUNTER 2019-05-25 11:20 | Inpatient (IN) | payer MEDICARE ==
[~2019-05-25] VITALS: Ht 162.6 cm; Wt 108.2 kg
--- NOTE | ~2019-05-25 | HEMODYNAMI ---
PATIENT:VINCENT NAGY MEDICAL RECORD: [id number] : 77 [id number] ADMISSION DATE: 05/25/19 Generatedon:05/26/20199:29 Patient name: VINCENT NAGY Patient #: [id number] SSN: [id number] : 1975 Date of study: 05/26/2019 Page: Of Hemodynamic Procedure Report Patient Data Patient Demographics Procedure consent was obtained First Name: VINCENT Gender: Female Last Name: LILO : 1975 Middle Initial: ALMA ROSA Age: 44 year(s) Patient #: [id number] Race: SSN: [id number] Additional ID: [id number] Contact details Address: [address] [place] [address] State: [place] City: [place] Zip code: [address] Past Medical History Allergies Allergen Reaction Date Comments Reported Other allergy 05/26/2019 PCN, CODEINE, KETOROLAC, LEVOFLOXACIN Admission Admission Data Admission Date: 05/25/2019 Admission Time: 11:20 Room #: D.2117 Insurance Payor: Medicare [facility] #: [id number] Height (in.): 63.78 BSA: 2.1 (m2) Height (cm.): 162 BMI: 41.15 (kg/m2) Weight (lbs.): 238.1 Weight (kg.): 108 Lab Results Lab Result Date: 05/26/2019 Lab Result Time: 0:00 Biochemistry Name Units Result Min Max BUN mg/dl 8 --(*---)-- 7 18 Creatinine mg/dl 0.9 --(-*--)-- 0.6 1.3 eGFR ml/min 72 *-(----)-- 90 120 NONAFRICAN CBC Name Units Result Min Max Hematocrit % 35.9 *-(----)-- 42 54 Hemoglobin g/dl 11.9 *-(----)-- 13.5 17.5 Procedure Procedure Types Cath Procedure Diagnostic Procedure [facility] w/Coronaries Procedure Description Procedure Date Procedure Date: 05/26/2019 Procedure Start Time: 9:13 Procedure End Time: 9:28 Procedure Staff Name Function Alfonso Freedman MD Performing Physician David Booth RN Nurse Sarai Mayes RT Scrub Marilia Harris RT Monitor Zak Tejada RT Monitor Procedure Data Cath Procedure Fluoroscopy Diagnostic fluoroscopy Total fluoroscopy Time: 3.4 time: 3.4 min min Diagnostic fluoroscopy Total fluoroscopy dose: 922 dose: 922 mGy mGy Contrast Material Contrast Material Type Amount (ml) Isovue 300 72 Entry Location Entry Primary Successful Side Size Upsize Upsize Entry Closure Pandey ccessful Closure Location (Fr) 1 (Fr) 2 (Fr) Remarks Device Remarks Radial Right 6 Fr Mechanical artery Short Compression Estimated blood loss: 5 ml Diagnostic catheters Device Type Used For End Catheter Placement DIAGNOSTIC [place] 110cm 5 Procedure Fr catheter ([id number]) DIAGNOSTIC Zeke 110cm Procedure 5Fr catheter ([id number]) Procedure Complications No complications Procedure Medications Medication Administration Route Dosage Oxygen etCO2 Nasal cannula 2 l/min Lidocaine 2% added to field 20 Heparin Flush Bag added to field 2 bags (1000units/500ml NS) 0.9% NaCl I.V. 100 ml/hr Versed I.V. 2 mg Fentanyl I.V. 100 mcg Versed I.V. 2 mg Fentanyl I.V. 50 mcg Versed I.V. 1 mg Radial Cocktail added to field 1 syringe (Verapamil 2mg/Nitro 400mcg/Heparin 1500units) Hemodynamics Rest BSA: 2.1 (m2) HGB: 11.9 (g/dl) O2 Consumption: Estimated: 210.87 (ml/min) O2 Con sumption indexed: Estimated:100.41 (ml/min/m) Heart Rate: 70 (bpm) Pressure Samples Time Site Value (mmHg) Purpose Heart Use Rate(bpm) 9:17 LV 160/9,13 Snapshot 88 9:17 AO 157/99(125) Pullback 78 9:17 LV 162/17,19 Pullback 78 Gradients Valve Time Site 1 Site 2 Mean SEP/DFP Peak To Heart Use (mmHg) (sec/min) Peak Rate (mmHg) (bpm) Aortic 9:17 LV AO 1 8 5 78 162/17,19 157/99(125) Calculations Valve P-P Mean Valve Index Valve Source Name Gradient Area Flow (cm2) Aortic 5 1 5 1 Snapshots Pre Cath Intra NCS Post Cath Vital Signs Time Heart Resp SPO2 etCO2 NIBP (mmHg) Rhythm Pain Sedation Rate (ipm) (%) (mmHg) Status Level (bpm) 8:59:14 75 31 98 27 183/118(157) NSR 0 (11) 10(A) , No pain 9:03:38 68 14 99 27.7 170/108(146) NSR 0 (11) 10(A) , No pain 9:07:56 70 36 98 34.4 159/108(143) NSR 0 (11) 10(A) , No pain 9:12:10 66 14 94 30.7 162/104(119) NSR 0 (11) 10(A) , No pain 9:16:27 82 17 94 30.7 135/99(116) NSR 0 (11) 10(A) , No pain 9:20:33 75 14 93 31.4 148/97(116) NSR 0 (11) 10(A) , No pain 9:24:42 76 19 94 32.2 159/101(129) NSR 0 (11) 10(A) , No pain 9:28:56 78 19 92 33.7 158/99(130) NSR 0 (11) 10(A) , No pain Medications Time Medication Route Dose Verified Delivered Reason Notes Effectiveness by by 9:04:22 Oxygen etCO2 2 l/min Alfonso Hernandez used for Nasal St Ren Booth RN procedure cannula 9:04:33 Lidocaine 2% added 20ml Alfonso Hamilton for local to vial [facility] anesthetic field MD RICK 9:04:41 Heparin Flush added 2 bags Alfonso Hamilton used for Bag to [facility] procedure (1000units/500ml field MD RICK NS) 9:04:51 0.9% NaCl I.V. 100 Alfonso Hernandez Per ml/hr St Ren Booth RN physician 9:06:06 Radial Cocktail added 1 Alfonso Hamilton for (Verapamil to syringe [facility] vasodilation 2mg/Nitro field MD RICK 400mcg/Heparin 1500units) 9:11:44 Versed I.V. 2 mg Alfonso Hernandez for sedation St Ren Booth RN, MD 9:11:50 Fentanyl I.V. 100 mcg Alfonso Hernandez for sedation St Ren Booth RN, MD 9:16:09 Versed I.V. 2 mg Alfonso Hernandez for sedation St Ren Booth RN, MD 9:16:40 Fentanyl I.V. 50 mcg Alfonso Hernandez for sedation St eRn Booth RN, MD 9:21:03 Versed I.V. 1 mg Alfonso Hernandez for sedation St Ren Booth RN, MD Procedure Log Time Note 8:24:14 Informed consent obtained and on chart 8:28:55 Insurance Payor : Medicare 8:29:01 Patient Weight : 238.1 lbs 8:29:07 Patient Height : 63.78 inches 8:31:39 Lab Result : Creatinine 0.9 mg/dl 8:31:39 Lab Result : BUN 8 mg/dl 8:31:39 Lab Result : Hematocrit 35.9 % 8:31:39 Lab Result : Hemoglobin 11.9 g/dl 8:31:39 Lab Result : eGFR NONAFRICAN 72 ml/min 8:32:25 Diagnostic Cath Status : Urgent 8:32:26 PCI Cath Status : Urgent 8:37:37 Procedure Status Urgent Heart Cath (IP). 8:37:39 Time tracking: Regular hours (M-F 7:00 - 5:00) 8:37:42 Plan of Care:Hemodynamics will remain stable., Cardiac rhythm will remain stable., Comfort level will be maintained., Respiratory function will remain adequate., Patient/ family verbilizes understanding of procedure., Procedure tolerated without complication., Recovers from procedure without complications.. 8:37:47 David Booth RN sent for patient. Start room use. 8:39:08 Patient allergic to Other allergyPCN, CODEINE, KETOROLAC, LEVOFLOXACIN 8:53:34 Patient received from Med II to CCL 1 Alert and oriented. Tansferred to table in Supine position. 8:53:36 Warm blankets applied, and piero hugger turned on for patient comfort. 8:53:37 Correct patient and procedure confirmed by team. 8:53:37 ECG and BP/O2 sat monitors applied to patient. 8:55:23 H&P Date Dictated: 05/25/2019 Within 30 days and on chart., H&P Addendum completed by physician on day of procedure. (MUST COMPLETE FOR ALL OUTPATIENTS). 8:55:44 Pre-procedure instructions explained to patient. 8:55:44 Pre-op teaching completed and patient verbalized understanding. 8:55:48 Family in waiting room. 8:55:49 Patient NPO since Midnight. 8:56:24 Is the patient allergic to Iodine/contrast media? No. 8:56:25 Is patient on blood thinner?No 8:56:30 ACC The patient was administered the following blood thiners within the last 24 hours: None 8:56:33 Patient diabetic? No. 8:56:48 Previous problem with sedation/anesthesia? No ? 8:57:10 Patient not . Patient has had tubal. 8:57:13 Snore? Yes 8:57:14 Sleep apnea? No 8:57:15 Deviated septum? No 8:57:16 Opens mouth fully? Yes 8:57:16 Sticks out tongue? Yes 8:57:18 Airway obstruction? No ? 8:57:20 Dentures? No ? 8:57:24 Pre procedure: right dorsailis pedis pulse 2+ Normal; easily identifiable; not easily obliterated 8:57:26 Modified Pa's test Ulnar < 7 seconds 8:57:28 Patient pain scale 0/10 ?. 8:57:33 IV patent on arrival in left forearm with 0.9% NaCl at O. 8:57:35 Lab results completed and on chart. 8:57:37 Right Radial & Right Groin area was prepped with chlora-prep and draped in sterile fashion 8:57:38 Alarms reviewed by R. N. 8:57:39 Sharps counted by scrub and verified by R.N. 8:57:41 Use device set Radial Dx or PCI 8:57:42 ACIST Syringe (51081) opened to sterile field. 8:57:42 Medline Cath Pack ([id number]) opened to sterile field. 8:57:43 Bag Decanter () opened to sterile field. 8:57:43 ACIST Manifold (69070) opened to sterile field. 8:57:44 ACIST Hand Control (46954) opened to sterile field. 8:57:44 Tegaderm 4 x 4 (1626W) opened to sterile field. 8:57:45 MBrace Wrist Support ([id number]) opened to sterile field. 8:57:46 SHEATH 6FR RAIN (9131653) opened to sterile field. 8:57:48 EMERALD Guide Wire (615-286) opened to sterile field. 8:58:05 Baseline sample Acquired. 8:58:05 Vital chart was started 8:58:08 Rhythm: sinus rhythm 8:58:10 Full Disclosure recording started 9:04:22 Oxygen 2 l/min etCO2 Nasal cannula was administered by David Booth RN; used for procedure; 9:04:33 Lidocaine 2% 20ml vial added to field was administered by Alfonso Freedman MD; for local anesthetic; 9:04:41 Heparin Flush Bag (1000units/500ml NS) 2 bags added to field was administered by Alfonso Freedman MD; used for procedure; 9:04:51 0.9% NaCl 100 ml/hr I.V. was administered by David Booth RN; Per physician; 9:06:06 Radial Cocktail (Verapamil 2mg/Nitro 400mcg/Heparin 1500units) 1 syringe added to field was administered by Alfonso Freedman MD; for vasodilation; 9:10:11 --------ALL STOP TIME OUT------ 9:10:11 Final Timeout: patient, procedure, and site verified with staff and physician. All members of the team are in agreement. 9:10:13 Right Radial & Right Groin site verified by team. 9:10:16 Fire Safety Assessment: A--An alcohol-based skin anteseptic being used preoperatively., C--Open oxygen or nitrous oxide is being used., D--An ESU, laser, or fiber-optic light is being used. 9:10:19 Physical assessment completed. ASA score P 2 - A patient with mild systemic disease as per Alfonso Freedman MD. 9:10:39 2) 60-89 Mildly reduced kidney function, and other findings (as for stage 1) point to kidney disease. 9:11:11 Maximum allowable contrast dose (3.7 X eGFR X 0.75)189 ml. 9:11:15 Sedation plan: IV Moderate Sedation Medication:Versed, Fentanyl 9:11:44 Versed 2 mg I.V. was administered by David Booth RN; for sedation; 9:11:50 Fentanyl 100 mcg I.V. was administered by David Booth RN; for sedation; 9:13:27 Procedure started. 9:13:33 Local anesthetic to right radial artery with Lidocaine 2% by Alfonso Freedman MD.INITIAL ACCESS ONLY 9:15:14 A 6 Fr Short sheath was inserted into the Right Radial artery 9:15:22 A DIAGNOSTIC [place] 110cm 5 Fr catheter (206294) was advanced over the wire and used for Procedure. 9:16:09 Versed 2 mg I.V. was administered by David Booth RN; for sedation; 9:16:40 Fentanyl 50 mcg I.V. was administered by David Booth RN; for sedation; 9:17:10 LV gram done using RODRIGUEZ 9::15 Injector settings: Ml/sec: 5, Volume: 15, 9:17:35 LV hemodynamics recorded. 9:17:50 EF : 55 % 9:18:19 RCA angiography performed. 9:19:25 Catheter exchanged over wire. 9:19:35 UNABLE TO ENGAGE LCA 9:20:43 A DIAGNOSTIC Zeke 110cm 5Fr catheter (425300) was advanced over the wire and used for Procedure. 9:21:03 Versed 1 mg I.V. was administered by David Booth RN; for sedation; 9:22:24 LCA angiography performed. 9:23:00 Catheter removed. 9:23:06 ZEPHYR REGULAR TR BAND (725765) opened to sterile field. 9:23:17 Procedure ended.(Physican Out) 9:23:54 Fluoroscopy time 03.40 minutes. 9:23:57 Fluoroscopy dose: 922 mGy 9:23:57 Flurop Dose total: 922 9:24:11 Dose Area Product 39778 mGy/cm. 9:24:14 Contrast amount:Isovue 300 72ml. 9:24:17 Maximum allowable dose exceeded? No. 9:24:17 Sharps counted by scrub and verified by R.N. 9:25:01 Sheath removed intact; hemostasis achieved with Mechanical Compression to the Right Radial artery. 9:25:05 TR band inflated with 10cc of air. 9:25:10 Post-procedure physical assessment completed. ASA score P 2 - A patient with mild systemic disease as per Alfonso Freedman MD. 9:25:28 Post procedure rhythm: sinus rhythm 9::31 Estimated blood loss: 5 ml ::33 Post procedure instruction explained to patient.Patient verbalizes understanding. 9:25:33 Patient needs reinforcement of post procedure teaching. 9:28:27 Procedure and supply charges have been captured, reviewed, submitted and are correct. 9:28:31 Procedure Complication : No complications 9:28:33 Vital chart was stopped 9:28:33 See physician's report for complete and final results. 9:28:36 Report given to Med II. 9:28:39 Patient transfered to Med II with Bed. 9:28:41 Procedure ended. 9:28:41 Full Disclosure recording stopped 9:28:46 End room use (Document Last) Device Usage Item Name Manufacture Quantity Catalog Hospital Part Current Minima l Lot# / Number Charge Number Stock Stock Serial# Code ACIST Acist 1 60833 190050 738053 022663 20 Syringe Medical (42699) Systems Inc Medline Medline 1 [id number] 773885 88653 718560 5 Cath Pack ([id number]) Bag Microtek 1 2001S 389196 38766 764390 5 Decanter Medical Inc. () ACIST Acist 1 33811 449648 957596 189021 5 Manifold Medical (70680) Systems Inc ACIST Hand Acist 1 35999 244320 564559 557336 5 Control Medical (45394) Systems Inc Tegaderm 4 3M 1 1626W 159874 361311 438389 5 x 4 (1626W) MBrace Advanced 1 140-0250-00 558743 27460 132149 5 Wrist Vascular Support Dynamics ([id number]) SHEATH 6FR Cardinal 1 6935679 330601 9137146 927783 5 RAIN Health (0630025) EMERALD Cardinal 1 502-455 179620 549528 543391 5 Guide Wire Health (502-455) DIAGNOSTIC Terumo 1 40-5013 092163 617805 419866 5 [place] 110cm 5 Fr catheter (813248) DIAGNOSTIC Terumo 1 40-5023 119973 440580 550600 5 Zeke 110cm 5Fr catheter (377301) ZEPHYR Cardinal 1 415569 121937 2561255 564895 5 REGULAR TR Health BAND (016060) Signature Audit [place] Stage Time Signature Unsigned Intra-Procedure 05/26/2019 Zak Tejada 9:29:50 AM RT(R) Signatures Performing Physician : Signature : Alfonso Freedman MD Date : Time : Nurse : Buffie Booth RN Signature : Date : Time : Monitor : Marilia Harris Signature : RT Date : Time : Monitor : Zak Tejada RT Signature : Date : Time : [facility] [address] [place] [address]
[2019-05-25] MEDS ORDERED: FLUTICASONE PRO16 GM (11:43)
[2019-05-25] MEDS ORDERED: CYANOCOBAL1000 MCG/4 SC (11:43)
[2019-05-25] MEDS ORDERED: LIPITOR20 MG PO (11:44)
[2019-05-25] MEDS ORDERED: SINGULAIR10 MG PO (11:44)
[2019-05-25] MEDS ORDERED: CYCLOBENZAPRINE10 MG PO (11:45)
[2019-05-25 12:14] VITALS: BP 145/91; BMI 40.7
--- NOTE | 2019-05-25 13:00 | NUR ---
ARRIVE TO FLOOR FROM DOCTOR'S OFFICE VIA AMBULATORY ACCOMPANIED BY FAMILY. ALERT AND ORIENTED X4. VITALS STABLE. O2 SAT 97% RA. REFUSE SCDs DUE TO UP AD SUSI. CONTINUE ADMISSION PROCESS AND SAFETY PRECAUTIONS.
[2019-05-25 13:19] LABS: BASOPHILS 0.2 % (0-2); EOSINOPHILS 1.3 % (0-7); HEMATOCRIT 35.9 % (36.0-48.0); HEMOGLOBIN 11.9 g/dL (12-16); IMMATURE GRANULOCYTES 0.2 % (0-5); LYMPHOCYTES 29.7 % (15-50); MCHC 33.1 g/dL (31.0-37.0); MCV 87.3 fL (80.0-100.0); MEAN PLATELET VOLUME 9.1 fL (7.4-10.4); MONOCYTES 7.3 % (2-11); NEUTROPHILS 61.3 % (40-80); PLATELET COUNT 268 10x3/uL (130-400); RBC 4.11 10x6/uL (4.00-5.40); RDW 13.7 % (11.5-14.5); WBC 9.7 10x3/uL (4.8-10.8)
--- NOTE | 2019-05-25 13:33 | NUR ---
ALERT AND ORIENTED X4. CONSENTS FOR [employer] OPERATOR SIGNED ON CHART. EKG COMPLETE ON CHART. SINUS RHYTHM 68 ON TELEMETRY. IV SITED RT HAND SUCCESSFUL X2 ATTEMPTS BY NURSE DIGITAL ARTIST. DENIES ANY NEEDS AT THIS TIME. CONTINUE PLAN OF CARE AND SAFETY PRECAUTIONS.
[2019-05-25 13:37] LABS: APPEARANCE HAZY (CLEAR); COLOR YELLOW (YELLOW)
[2019-05-25 13:38] LABS: BILIRUBIN NEGATIVE (NEGATIVE); GLUCOSE NEGATIVE (NEGATIVE); KETONE NEGATIVE (NEGATIVE); NITRITE NEGATIVE (NEGATIVE); PROTEIN NEGATIVE (NEGATIVE); SPECIFIC GRAVITY 1.005 (1.005-1.020); UROBILINOGEN NORMAL (NORMAL)
[2019-05-25 13:40] LABS: BACTERIA MODERATE /hpf (NONE SEEN); EPITHELIAL CELLS 0-5 /hpf (0-5); MUCUS <1+ /lpf (NONE SEEN); WHITE CELLS - URINE OCC /hpf (0-5)
[2019-05-25 13:45] LABS: ALBUMIN 3.1 g/dL (3.4-5.0); ALKALINE PHOSPHATASE 92 U/L (46-116); ALT (SGPT) 10 U/L (10-68); BILIRUBIN - TOTAL 0.25 mg/dL (0.2-1.3); CALC OSMOLALITY 281 mosm/kg (275-300); CALCIUM 8.5 mg/dL (8.5-10.1); CHLORIDE - SERUM 105 mmol/L (98-107); CREATINE KINASE 58 UL (21-215); CREATININE - SERUM 0.9 mg/dL (0.6-1.3); GLUCOSE 109 mg/dL (74-106); POTASSIUM - SERUM 3.3 mmol/L (3.5-5.1); PROTEIN - SERUM 6.5 g/dL (6.4-8.2); SODIUM 142 mmol/L (136-145); UREA NITROGEN 8 mg/dL (7-18); eGFR NON AFRICAN AMERICAN 72 mL/min (90-120)
[2019-05-25 13:47] LABS: TROPONIN-I < 0.017 ng/mL (0.000-0.060)
[2019-05-25 16:52] VITALS: BP 151/98
[2019-05-25 19:15] LABS: CKMB 0.1 U/L (0.0-3.6); CREATINE KINASE 48 UL (21-215); TROPONIN-I < 0.017 ng/mL (0.000-0.060)
--- NOTE | 2019-05-25 19:35 | NUR ---
PATIENT AAO X4 RESTING COMFORTABLY IN BED. RESPIRATIONS ARE EVEN AND UNLABORED. NO S/S OF DISTRESS. NO C/O PAIN. CALL LIGHT WITHIN REACH. WILL CPOC.
[2019-05-25 20:00] VITALS: BP 142/72; BP 89/40
--- NOTE | 2019-05-25 20:36 | NUR ---
PATIENT COMPLAINED THAT SHE HAS NOT SEEN A DOCTOR SINCE SHE HAS BEEN ADMITTED. PATIENT REQUESTED HER PAIN MEDICATION THAT SHE TAKES ON A ROUTINE BASIS. AUGUST DEL CASTILLO PAGED EXPLAINED SITUATION. AUGUST WILL COME SEE PATIENT.
--- NOTE | 2019-05-25 21:15 | NUR ---
CALLED DRILLER AND BROACHER, PATIENT ANGRY THAT SHE WAS STILL WAITING TO SEE SOMEONE THAT WAS ABLE TO REORDER HER HOME MEDICATIONS. DRILLER AND BROACHER TO CALL AUGUST DEL CASTILLO.
--- NOTE | 2019-05-25 22:00 | NUR ---
MEDICATIONS REORDERED AND ADMINISTERED TO PATIENT. ASSESSMENT COMPLETE.
[2019-05-25 23:21] LABS: UDS - AMPHET NEGATIVE QUAL (NEGATIVE); UDS - BARB NEGATIVE QUAL (NEGATIVE); UDS - BENZO NEGATIVE QUAL (NEGATIVE); UDS - COCAINE NEGATIVE QUAL (NEGATIVE); UDS - OPIATE POSITIVE QUAL (NEGATIVE); UDS - PCP NEGATIVE QUAL (NEGATIVE); UDS - THC NEGATIVE QUAL (NEGATIVE)
[2019-05-25 23:56] LABS: CREATINE KINASE 43 UL (21-215); TROPONIN-I < 0.017 ng/mL (0.000-0.060)
[2019-05-26 04:00] VITALS: BP 135/80
[2019-05-26 06:51] LABS: BASOPHILS 0.1 % (0-2); EOSINOPHILS 1.3 % (0-7); HEMATOCRIT 34.1 % (36.0-48.0); HEMOGLOBIN 11.2 g/dL (12-16); IMMATURE GRANULOCYTES 0.1 % (0-5); LYMPHOCYTES 36.9 % (15-50); MCH 28.7 pg (26.0-34.0); MCHC 32.8 g/dL (31.0-37.0); MCV 87.4 fL (80.0-100.0); MONOCYTES 9.6 % (2-11); PLATELET COUNT 265 10x3/uL (130-400); RDW 14.1 % (11.5-14.5)
[2019-05-26 07:08] LABS: % SATURATION 17 % (15-55); IRON 47 ug/dl (35-150); TOTAL IRON BIND CAPACITY 262 ug/dl (260-445); UNSAT IRON BIND CAPACITY 215 ug/dl (150-375)
[2019-05-26 07:29] LABS: ANION GAP 12.3 mmol/L (8-16); CALCIUM 8.3 mg/dL (8.5-10.1); CARBON DIOXIDE 26.2 mmol/L (21.0-32.0); CREATININE - SERUM 0.9 mg/dL (0.6-1.3); POTASSIUM - SERUM 3.5 mmol/L (3.5-5.1)
[2019-05-26 08:30] VITALS: BP 163/94
--- NOTE | 2019-05-26 09:52 | NUR ---
ALERT AND ORIENTED X4. ARRIVE BACK TO ROOM VIA BED FROM POPULATION HEALTH MANAGER. TR BAND RT WRIST CLEAN DRY INTACT. FREE FROM HEMATOMA. FREE FROM BLEEDING. PULSE PALPABLE. BP-163/106, HR-67 SINUS RHYTHM, O2-99% WITH 2L NC. CONTINUE PLAN OF CARE AND SAFETY PRECAUTIONS.
[2019-05-26 12:59] VITALS: BP 140/100
[2019-05-26 13:27] VITALS: Ht 162.6 cm; Wt 108.2 kg
[2019-05-26 16:04] VITALS: BP 152/86
[2019-05-26 20:00] VITALS: BP 128/75
[2019-05-27] VITALS: BP 128/82
[2019-05-27 03:53] LABS: BASOPHILS 0.2 % (0-2); EOSINOPHILS 1.2 % (0-7); HEMATOCRIT 32.7 % (36.0-48.0); HEMOGLOBIN 10.7 g/dL (12-16); IMMATURE GRANULOCYTES 0.1 % (0-5); LYMPHOCYTES 25.5 % (15-50); MCH 28.9 pg (26.0-34.0); MCHC 32.7 g/dL (31.0-37.0); MCV 88.4 fL (80.0-100.0); MONOCYTES 7.3 % (2-11); NEUTROPHILS 65.7 % (40-80); PLATELET COUNT 264 10x3/uL (130-400); WBC 9.7 10x3/uL (4.8-10.8)
[2019-05-27 04:06] LABS: ANION GAP 9.4 mmol/L (8-16); CALCIUM 8.2 mg/dL (8.5-10.1); CARBON DIOXIDE 27.4 mmol/L (21.0-32.0); CREATININE - SERUM 0.9 mg/dL (0.6-1.3); POTASSIUM - SERUM 3.8 mmol/L (3.5-5.1)
[2019-05-27 05:01] VITALS: BP 149/90
[2019-05-27 09:23] VITALS: BP 157/100
[2019-05-27 10:10] LABS: IMMUNOGLOBULIN A 188 mg/dL (87-352); IMMUNOGLOBULIN G 958 mg/dL (700-1600)
[2019-05-27 13:30] VITALS: BP 184/107
[2019-05-27 17:29] VITALS: BP 159/113
[2019-05-27 20:00] VITALS: BP 139/85
[2019-05-28] VITALS: BP 140/95
[2019-05-28 04:00] VITALS: BP 179/114
[2019-05-28 04:49] LABS: BASOPHILS 0.2 % (0-2); EOSINOPHILS 1.4 % (0-7); HEMATOCRIT 32.9 % (36.0-48.0); HEMOGLOBIN 10.4 g/dL (12-16); IMMATURE GRANULOCYTES 0.1 % (0-5); LYMPHOCYTES 31.1 % (15-50); MCH 27.8 pg (26.0-34.0); MCHC 31.6 g/dL (31.0-37.0); MEAN PLATELET VOLUME 9.2 fL (7.4-10.4); NEUTROPHILS 58.2 % (40-80); PLATELET COUNT 254 10x3/uL (130-400); RBC 3.74 10x6/uL (4.00-5.40); WBC 9.2 10x3/uL (4.8-10.8)
[2019-05-28 05:01] LABS: ANION GAP 12.5 mmol/L (8-16); CALCIUM 8.2 mg/dL (8.5-10.1); CARBON DIOXIDE 24.4 mmol/L (21.0-32.0); CREATININE - SERUM 0.9 mg/dL (0.6-1.3); POTASSIUM - SERUM 3.9 mmol/L (3.5-5.1)
--- NOTE | 2019-05-28 07:15 | NUR ---
RECEIVED PT IN BED AAOX4 RESP UNLABORED SKIN W/D COLOR WNL DENIES ANY NEEDS AT THIS TIME WILL CONTINUE TO MONITOR
[2019-05-28 09:58] VITALS: BP 163/106
[2019-05-28 12:10] LABS: IGG SUBCLASS 1 582 mg/dL (248-810); IGG SUBCLASS 2 235 mg/dL (130-555); IGG SUBCLASS 3 66 mg/dL (15-102); IGG SUBCLASS 4 18 mg/dL (2-96); IGGS - IGG SERUM 935 mg/dL (700-1600)
[2019-05-28 13:46] VITALS: BP 181/107
--- NOTE | 2019-05-28 15:44 | MORECARE ---
CASE MANAGEMENT DISCHARGE SUMMARY PATIENT: VINCENT NAGY UNIT: [id number] ADM DATE: 05/25/19 AGE: 44 : [birth year] SEX: F ROOM/BED: D.4663 AUTHOR: RADHA GAGE PHYSICIAN: REFERRING PHYSICIAN: IVONNE HART DO DATE OF SERVICE: 05/28/19 Discharge Plan Patient Name: VINCENT NAGY Facility: [facility]:[place] : 1975 Planned Disposition: Home Anticipated Discharge Date: 05/28/19 Discharge Date: Expected LOS: 3 Initial Reviewer: [email or web address] Initial Review Date: 05/28/2019 Generated: 05/28/19 4:43 pm Comments DCP- Discharge Planning Updated by [email or web address]: Adam Arevalo on 05/28/19 2:[address] Patient Name: VINCENT NAGY Admission Status: Elective Accout number: [id number] Admission Date: 05-25-2019 : 1975 Admission Diagnosis:SHORTNESS OF BREATH Attending: IVONNE HART Current LOS: 3 Anticipated DC Date: 05-28-2019 Planned Disposition: Home Primary Insurance: MEDICARE A & B Discharge Planning Comments: CM MET WITH PT IN ROOM TO DISCUSS DISCHARGE PLANNING AND NEEDS. PT REPORTS LIVING AT HOME INDEPENDENTLY WITH HER MOTHER. PT HAS NEBULIZER WITH NO MEDICAL EQUIPMENT PROVIDER PREFERENCE. PT HAS NO OUTSIDE SERVICES ASSISTING IN THE HOME. CM DISCUSSED AVAILABILITY OF HOME HEALTH, REHAB SERVICES AND MEDICAL EQUIPMENT. PT DENIES DISCHARGE NEEDS, REPORTS HER MOTHER WILL PICK HER UP FOR DISCHARGE HOME. IMPORTANT MESSAGE FROM MEDICARE PROVIDED AND EXPLAINED. Pallet Stone Positioner: Adam Arevalo DCPIA - Discharge Planning Initial Assessment Updated by [email or web address]: Adam Arevalo on 05/28/19 3:38 pm * Is the patient Alert and Oriented? Yes * How many steps to enter\exit or inside your home? * PCP DR. HART * Pharmacy [facility] IN [facility] * Preadmission Environment Home with Family * ADLs Independent * Equipment Nebulizer * Other Equipment NO MEDICAL EQUIPMENT PROVIDER PREFERENCE * List name and contact numbers for known caregivers / representatives who currently or will assist patient after discharge: JAXON JOHNSON, MOTHER, * Verbal permission to speak to the caregivers and representatives has been obtained from the patient. N/A * Community resources currently utilized None * Please name any agencies selected above. NONE * Additional services required to return to the preadmission environment? No * Can the patient safely return to the preadmission environment? Yes * Has this patient been hospitalized within the prior 30 days at any hospital? No Coverage Notice Reviewer: [email or web address] Gabe Arevalo Notice Issued Date-Time: 05/28/2019 13:15 Notice Type: IM Discharge Notice Notice Delivered To: Patient Relationship to Patient: Patient Account Specialist Name: Delivery Method: HAND - Hand Delivered Joelle Days: Prior Verbal Notification: Recipient Understood Notice: Yes Recipient Signature: Yes Med Rec Note Co-signed by Attending: Coverage Notice Comment: Patient Name: VINCENT NAGY Page 20228 at 1544 All edits/amendments must be made on the electronic document DICTATION DATE: 05/28/19 154 DEPUTY GRAND JURY: MARGE 05/28/19 1543 RPT#: [id number] DC DATE: STATUS: ADM IN [facility] [address] [place] [address] END OF REPORT
--- NOTE | 2019-05-28 16:35 | NUR ---
REVIEWED DISCHARGE INSTRUCTIONS WITH PT STATES UNDERSTANDING COPY GIVEN DCD SALINE LOCK TO LFA WITH IV CATHETER INTACT SITE FREE OF REDNESS OR EDEMA PT DISCHARGED HOME IN STABLE CONDITION WITH ALL PERSONAL BELONGINGS LEFT UNIT VIA W/C
[2019-05-29 18:07] LABS: ANCA - ANTIMYELOPEROXIDASE <9.0 U/mL (0.0-9.0); ANCA - ANTIPROTEINASE 3 <3.5 U/mL (0.0-3.5); ANCA - ATYPICAL <1:20 titer (Neg:<1:20); ANCA - CYTOPLASMIC <1:20 titer (Neg:<1:20); ANCA - PERINUCLEAR <1:20 titer (Neg:<1:20)
[2019-05-30 03:06] LABS: IMMUNOGLOBULIN E 153 IU/mL (6-495)
--- NOTE | 2019-05-30 09:24 | OP ---
PATIENT NAME: VINCENT NAGY MEDICAL RECORD: [id number] :77 LOCATION:D.M2 D.2117 ADMISSION DATE:05/25/19 SURGEON: ALVARADO SARABIA MD DATE OF OPERATION: 05/26/2019 PROCEDURE: Left heart catheterization, selective coronary angiography, right radial approach. CATHETERS: Radial sheath, Dante catheter. The procedure was well tolerated. The patient returned to the waterman, sheath removed. TR band was placed. FINDINGS: Left ventriculography in 30-degree RODRIGUEZ view: Normal wall motion, normal systolic function. CORONARY ANATOMY: LEFT MAIN: Left main is free of disease. LAD: Free of disease in the diagonal system. CIRCUMFLEX: Free of disease in the marginal system. RIGHT CORONARY ARTERY: Dominant artery, gives rise to PDA, free of disease. IMPRESSION: Normal LV systolic function, normal coronary anatomy. TRANSINT:[id number] Voice Confirmation ID: [id number] DOCUMENT ID: [id number] ALVARADO SARABIA MD at 0924 CC: [id number] DICTATION DATE: 05/26/19928 CLUBHOUSE MANAGER: 05/26/19 1122 DIS IN 05/28/19 [facility] [address] [place] [address]
--- NOTE | 2019-05-30 09:24 | EC ---
PATIENT:VINCENT NAGY DATE OF SERVICE: 05/25/19 SEX: F MEDICAL RECORD: [id number] DATE OF : [birth year] LOCATION:D.M2 D.211 AGE OF PATIENT: 44 ADMISSION DATE: 05/25/19 REFERRING PHYSICIAN: INTERPRETING PHYSICIAN: ALVARADO SARAIBA MD ECHOCARDIOGRAM REPORT ECHO CHARGES 4 ECHO COMPLETE Date: 05/25/19 CLINICAL DIAGNOSIS: CP ECHOCARDIOGRAPHIC MEASUREMENTS (adult normal given) AC root (d.<3.7cm) 3.1 cm LV Septum d (<1.2 cm> 1.6 cm Valve Excursion 2.0 cm LV Septum (systole) 2.1 cm Left Atria (s.<4.0cm> 4.4 cm LVPW d(<1.2cm) 1.5 cm RV (d.<2.3cm) 2.8 cm LVPW (sytole) 2.5 cm LV diastole(<5.6CM) 4.7 cm MV E-F(>70mm/sec) cm LV systole 1.9 cm LVOT Diameter 2.1 cm MV exc.(>10mm) cm Est.ejection fraction (50-75%) % DOPPLER: LVIT cm/sec A 55.0 cm/sec E 95.0 cm/sec LA cm/sec RVSP 31.0 mmHg LVOT 102 cm/sec AOP1/2T m/s Asc. Ao 149 cm/sec RVOT 64.0 cm/sec RA cm/sec PA 96.0 cm/sec AV Gradient Peak 8.9 mmHg AV Mean 4.4 mmHg AV Area 2.5 cm MV Gradient Peak 3.5 mmHg MV Mean 1.7 mmHg MV Area cm COMMENTS: Compositor Apprentice: 1 VARUN GONZALEZOE Rn Telemetry: 3 Dr. Garcia TAPE# PACS Pericardial Effusion N DATE OF SERVICE: Adequate 2D, color flow, spectral Doppler, and M-Mode. LVH is present. LV internal dimension is normal. Wall motion is normal. EF is greater than or equal to 55%. Aortic valve is tricuspid. No evidence of stenosis by Doppler interrogation. Left atrium is mildly dilated at 4.4 cm. Mitral valve shows no prolapse. Mild MR. Right-sided chambers are grossly normal. Mild TR. TRANSINT:[id number] Voice Confirmation ID: [id number] DOCUMENT ID: [id number] ECHOCARDIOGRAM REPORT [id number] VINCENT NAGY,ALVARADO Becerril MD at 0924 CC: [id number] DICTATION DATE: 05/26/19 1026 INTERNAL COMMUNICATIONS WRITER: 05/26/19 1225 DIS IN 05/28/19 [place] [id number] [place] [id number]
--- NOTE | 2019-05-30 09:24 | CN ---
PATIENT NAME:VINCENT NAGY MEDICAL RECORD: [id number] : 77 LOCATION:D.Martha D.2117 ADMIT DATE: 05/25/19 ACCOUNT: [id number] CONSULTING PHYSICIAN: ALVARADO SARABIA MD REFERRING PHYSICIAN: IVONNE HART DO DATE OF CONSULTATION: 05/25/2019 HISTORY OF PRESENT ILLNESS: A 44-year-old female with a known history of coronary artery disease, admitted with progressive dyspnea on exertion, chest tightness and pressure, progression over the past few months, progressing to rest symptomology class IV at this point. Family history is unknown. Does have history of hypertension, hyperlipidemia as well as a fdc smoking. We are asked to see her concerning her cardiovascular status. PAST MEDICAL HISTORY: Includes: 1. History of hypertension. 2. Hyperlipidemia. 3. Obstructive pulmonary disease, questionable pulmonary fibrosis. 4. Gastroesophageal reflux disease. MEDICATIONS: Include: 1. Ondansetron 4 mg p.o. p.r.n. 2. Pepcid 40 p.o. b.i.d. 3. Klonopin 1 mg p.o. b.i.d. 4. [place] 10/325 one q.6 hours p.r.n. 5. Micardis 40 every day. 6. Metoprolol 100 every day. 7. Atorvastatin 20 every day. 8. Flexeril 10 t.i.d. p.r.n. ALLERGIES: PENICILLIN, CODEINE, TORADOL, AND LEVAQUIN. SOCIAL HISTORY: Smokes about a pack a day, nondrinker. No set exercise program secondary to dyspnea. Does take care of ADLs. REVIEW OF SYSTEMS: The patient reports easy bruising but reports no swollen glands. The patient reports no fever, no night sweats, no significant weight gain, no significant weight loss. No significant exercise tolerance. The patient reports no dry eyes, no irritation, no vision change. Patient reports no difficulty hearing and no ear pain. Patient reports no frequent nose bleeds or nose and sinus problems. Patient reports on arm pain on exertion. No shortness of breath while lying down. No history of heart murmur. Patient reports no cough, no wheezing or coughing up blood. Patient reports no abdominal pain, no vomiting. Normal appetite. No diarrhea and not vomiting blood. No nausea and no constipation. Patient reports no incontinence. No difficulty urinating. No hematuria. No increased frequency. Patient reports no muscle aches. No weakness, no arthralgias, no back pain. No swelling of the extremities. Patient reports no abnormal mole, no jaundice, no rashes. Reports no loss of consciousness. No weakness and no numbness. No seizures, dizziness, or headaches. The patient reports no depression, no sleep disturbance, feeling safe in a relationship and no alcohol abuse. Patient reports on fatigue. Reports no runny nose or sinus pressure. No itching, no hives, and no frequent sneezing. PHYSICAL EXAMINATION: CONSULT REPORT [id number] VINCENT NAGY GENERAL: Pleasant female in no acute distress, appears stated age. VITAL SIGNS: Blood pressure 145/91, pulse 68 and regular. HEENT: Normocephalic, atraumatic. NECK: No bruits noted. HEART: Regular, II/ systolic ejection murmur. LUNGS: Prolonged respiratory phase, few expiratory wheezes. ABDOMEN: Soft, nontender. EXTREMITIES: Pulses 2+ with no edema. NEUROLOGIC: Grossly intact. DIAGNOSTIC DATA: ECG shows LVH, secondary to ST-T changes versus ischemia. IMPRESSION: Acute coronary syndrome, rapidly progressing to class IV symptomatology. PLAN: For angiography, intervention based on the above. TRANSINT:[id number] Voice Confirmation ID: [id number] DOCUMENT ID: [id number] ALVARADO SARABIA MD at 0924 CC: [id number] DICTATION DATE: 05/25/19 1241 PLASTIC PARTS FABRICATOR: 05/25/19 1317 DIS IN 05/28/19 [place] [id number] [place] [address]
[2019-06-01 15:10] LABS: MYCOPLASMA PNEUMO IGG 1015 U/mL (0-99)
== END 2019-05-28 16:35 | disposition home or self-care (01) | DRG 190 ==
LOC: D.M2 11:20
PROVIDERS: Internal Medicine Interventional Cardiology; Internal Medicine Nephrology; Internal Medicine Pulmonary Disease; ADMIT Family Medicine; ATTEND Family Medicine
PROC: B2151ZZ Fluoroscopy of Left Heart using Low Osmolar Contrast (ICD-10-PCS; 2019-05-26)
PROC: 4A023N7 Measurement of Cardiac Sampling and Pressure, Left Heart, Percutaneous Approach (ICD-10-PCS; 2019-05-26)
PROC: B2111ZZ Fluoroscopy of Multiple Coronary Arteries using Low Osmolar Contrast (ICD-10-PCS; principal; 2019-05-26 08:00)
DX: J44.0 Chronic obstructive pulmonary disease with (acute) lower respiratory infection (principal); J18.9 Pneumonia, unspecified organism; I24.9 Acute ischemic heart disease, unspecified; F17.213 Nicotine dependence, cigarettes, with withdrawal; I50.30 Unspecified diastolic (congestive) heart failure; J44.1 Chronic obstructive pulmonary disease with (acute) exacerbation; D64.9 Anemia, unspecified; E87.6 Hypokalemia; E78.5 Hyperlipidemia, unspecified; K21.9 Gastro-esophageal reflux disease without esophagitis; I25.10 Atherosclerotic heart disease of native coronary artery without angina pectoris; F31.9 Bipolar disorder, unspecified; G47.33 Obstructive sleep apnea (adult) (pediatric); J30.9 Allergic rhinitis, unspecified; I11.0 Hypertensive heart disease with heart failure; J20.9 Acute bronchitis, unspecified

== ENCOUNTER → 2019-11-09 08:27 | Outpatient (CLI) | payer MEDICARE ==
[2019-05-26 13:27] VITALS: BMI 40.7
[~2019-11-09 08:27] MED LIST changes: +CYANOCOBAL1000 MCG/4 SC; +CYCLOBENZAPRINE10 MG PO; +FLUTICASONE PRO16 GM; +LIPITOR20 MG PO; +NORMODYNE / TR100 MG PO; +NORMODYNE / TR300 MG PO; +NORVASC10 MG PO; +NORVASC5 MG PO; +SINGULAIR10 MG PO
== END | disposition home or self-care (01) ==
LOC: D.CT 08:27
PROVIDERS: ATTEND Internal Medicine Interventional Cardiology
DX: I10 Essential (primary) hypertension (principal)

== ENCOUNTER 2019-11-11 17:28 | Observation (INO) | payer MEDICARE ==
[~2019-11-11] VITALS: Ht 162.6 cm; Wt 106.6 kg
--- NOTE | ~2019-11-11 | EC ---
PATIENT:VINCENT NAGY DATE OF SERVICE: 11/11/19 SEX: F MEDICAL RECORD: [id number] DATE OF : [birth year] LOCATION:D.M2 D.211 AGE OF PATIENT: 44 ADMISSION DATE: 11/11/19 REFERRING PHYSICIAN: INTERPRETING PHYSICIAN: GUIDO MEREDITH MD ECHOCARDIOGRAM REPORT ECHO CHARGES 4 ECHO COMPLETE Date: 11/12/19 CLINICAL DIAGNOSIS: CP ECHOCARDIOGRAPHIC MEASUREMENTS (adult normal given) AC root (d.<3.7cm) 3.0 cm LV Septum d (<1.2 cm> 0.9 cm Valve Excursion 1.1 cm LV Septum (systole) 1.3 cm Left Atria (s.<4.0cm> 3.0 cm LVPW d(<1.2cm) 0.9 cm RV (d.<2.3cm) 2.5 cm LVPW (sytole) 1.0 cm LV diastole(<5.6CM) 5.3 cm MV E-F(>70mm/sec) cm LV systole 4.1 cm LVOT Diameter 1.9 cm MV exc.(>10mm) cm Est.ejection fraction (50-75%) % DOPPLER: LVIT cm/sec A 62 cm/sec E 85 cm/sec LA cm/sec RVSP 15.9 mmHg LVOT 89 cm/sec AOP1/2T m/s Asc. Ao 116 cm/sec RVOT 64 cm/sec RA cm/sec PA 66 cm/sec AV Gradient Peak 5.4 mmHg AV Mean 2.7 mmHg AV Area 2.9 cm MV Gradient Peak 3.4 mmHg MV Mean 1.8 mmHg MV Area cm COMMENTS: Shipping Services Sales Representative: Gen LYLETERESA YAKOV Manufacturing [employer]: 1 Dr. Meredith TAPE# PACS Pericardial Effusion N DATE OF SERVICE: ECHOCARDIOGRAM FINDINGS: 1. Left ventricular chamber size is within normal limits. Left ventricular systolic function is normal. Overall ejection fraction estimated at 55%. 2. Left atrium, right atrium, and right ventricle chamber sizes are within normal limits. 3. Valvular structures have normal structure and motion. ECHOCARDIOGRAM REPORT [id number] VINCENT NAGY 4. Doppler interrogation reveals no significant valvular insufficiency or stenosis. Pulmonary systolic pressure estimated 60 mmHg. 5. No evidence of pericardial effusion or left ventricular thrombus. TRANSINT:[id number] Voice Confirmation ID: [id number] DOCUMENT ID: [id number] GIUDO MEREDITH MD CC: [id number] DICTATION DATE: 11/14/19 1204 LUBE TECHNICIAN: 11/14/19 1723 DIS IN 11/12/19 [place] [id number] [place] [id number]
--- NOTE | ~2019-11-11 | OP ---
PATIENT NAME: VINCENT NAGY MEDICAL RECORD: [id number] :77 LOCATION:D.M2 D.2113 ADMISSION DATE:11/11/19 SURGEON: GUIDO AGUIRRE MD DATE OF OPERATION: 11/12/2019 PROCEDURES: 1. Left heart catheterization. 2. Selective coronary angiography. 3. Left ventriculogram. 4. Bilateral selective renal angiography. INDICATIONS: Angina and out of control hypertension. PROCEDURE IN DETAIL: After informed consent was obtained and after a detailed description of the risks, benefits as well as alternative therapies, the patient elected to proceed with angiogram and heart catheterization. The right femoral area was prepped and draped in normal sterile fashion. Right femoral artery was cannulated via modified Seldinger technique with placement of 5-Slovenian sheath. All catheters were exchanged through the sheath. FINDINGS: Left ventriculogram performed in standard 30-degree RODRIGUEZ view, reveals good cardiac wall motion, ejection fraction is 60%. SELECTIVE CORONARY ANGIOGRAPHY: Left main, left anterior descending, left circumflex, right coronary artery are all smooth-walled vessels with no angiographic evidence of coronary artery disease. BILATERAL SELECTIVE RENAL ANGIOGRAPHY: Each renal artery was selectively engaged. Each renal artery is a solitary artery off the aorta with no significant renal artery stenosis. OVERALL IMPRESSION: 1. No coronary artery disease present. 2. No renal artery stenosis present. Sent her on medical management for treatment of essential hypertension. TRANSINT:[id number] Voice Confirmation ID: [id number] DOCUMENT ID: [id number] GUIDO AGUIRRE MD CC: [id number] DICTATION DATE: 11/12/19 1453 TRIM SETTER: 11/12/195 DIS IN 11/12/19 [place] [id number] [place] [address]
--- NOTE | ~2019-11-11 | HEMODYNAMI ---
PATIENT:VINCENT NAGY MEDICAL RECORD: [id number] : 77 [facility] D.2113 [id number] ADMISSION DATE: 11/11/19 Generatedon:11/12/201914:58 Patient name: VINCENT NAGY Patient #: [id number] SSN: [id number] : 1975 Date of study: 11/12/2019 Page: Of Hemodynamic Procedure Report Patient Data Patient Demographics Procedure consent was obtained First Name: VINCENT Gender: Female Last Name: LILO : 1975 Middle Initial: ALMA ROSA Age: 44 year(s) Patient #: [id number] Race: SSN: [id number] Additional ID: [id number] Contact details Address: [address] [place] [address] State: [place] City: [place] Zip code: [address] Past Medical History Allergies Allergen Reaction Date Comments Reported Other allergy 05/26/2019 PCN, CODEINE, KETOROLAC, LEVOFLOXACIN Admission Admission Data Admission Date: 11/11/2019 Admission Time: 21:52 Room #: D.2113 Procedure Procedure Types Cath Procedure Diagnostic Procedure [facility] w/Coronaries Sedation Charges Moderate Sedation up to 15 minutes Peripheral Cath Diagnostic Procedure Customs Import Specialist Peripheral Procedures Renal Arteriogram Procedure Description Procedure Date Procedure Date: 11/12/2019 Procedure Start Time: 14:43 Procedure End Time: 14:51 Procedure Staff Name Function Rivera Meredith MD Performing Physician Florina Salomon RT Monitor Blanca Vincent RT Scrub Germaine Thomson RN Nurse Procedure Data Cath Procedure Fluoroscopy Diagnostic fluoroscopy Total fluoroscopy Time: 1.8 time: 1.8 min min Diagnostic fluoroscopy Total fluoroscopy dose: 747 dose: 747 mGy mGy Contrast Material Contrast Material Type Amount (ml) Isovue 300 45 Entry Location Entry Primary Successful Side Size Upsize Upsize Entry Closure Succes sful Closure Location (Fr) 1 (Fr) 2 (Fr) Remarks Device Remarks Femoral Right 5 Fr Exoseal artery Estimated blood loss: 5 ml Diagnostic catheters Device Type Used For End Catheter Placement MULTIPACK Pigtail 5 Fr LV Angiography catheter MULTIPACK JL 4.0 5Fr Left Coronary catheter Angiography MULTIPACK 3DRC 5Fr Right Coronary catheter Angiography Procedure Complications No complications Procedure Medications Medication Administration Route Dosage 0.9% NaCl I.V. 100 ml/hr Oxygen etCO2 Nasal cannula 2 l/min Lidocaine 2% added to field 20 Heparin Flush Bag added to field 2 bags (1000units/500ml NS) Versed I.V. 2 mg Fentanyl I.V. 50 mcg Hemodynamics Rest Heart Rate: 69 (bpm) Pressure Samples Time Site Value (mmHg) Purpose Heart Use Rate(bpm) 14:46 LV 112/34,62 Snapshot 84 Snapshots Pre Cath Intra NCS Post Cath Vital Signs Time Heart Resp SPO2 etCO2 NIBP Rhythm Pain Sedation Rate (ipm) (%) (mmHg) (mmHg) Status Level (bpm) 14:33:38 68 16 100 36.1 124/80(96) NSR 0 (11) 10(A) , No pain 14:37:48 69 13 100 36.1 123/75(89) NSR 0 (11) 10(A) , No pain 14:42:00 70 14 100 33.8 116/74(91) NSR 0 (11) 10(A) , No pain 14:46:10 72 23 100 29.3 114/67(83) NSR 0 (11) 9(A) , No pain 14:50:18 77 17 99 36.8 119/75(98) NSR 0 (11) 10(A) , No pain Medications Time Medication Route Dose Verified Delivered Reason Notes Eff ectiveness by by 14:32:49 0.9% NaCl I.V. 100 Rivera Germaine used for ml/hr Masoud Thomson fabricator industrial furnace 14:32:56 Oxygen etCO2 2 Rivera Germaine used for Nasal l/min Masoud Thomson procedure cannula RN 14:33:01 Lidocaine 2% added 20ml Rivera Stafford for local to vial Masoud Meredith MD anesthetic field 14:33:05 Heparin Flush added 2 Rivera Stafford used for Bag to bags Masoud Meredith MD procedure (1000units/500ml field NS) 14:42:14 Versed I.V. 2 mg Rivera Germaine for Masoud Thomson sedation RN 14:42:27 Fentanyl I.V. 50 Rivera Germaine for [facility] Masoud Thomson sedation drug enforcement administration agent Log Time Note 14:16:57 Blanca Vincent RT(R) sent for patient. Start room use. 14:18:34 Informed consent obtained and on chart 14:26:46 Diagnostic Cath Status : Urgent 14:26:55 Procedure Status Urgent Heart Cath (IP). 14:27:03 Time tracking: Regular hours (M-F 7:00 - 5:00) 14:27:07 Plan of Care:Hemodynamics will remain stable., Cardiac rhythm will remain stable., Comfort level will be maintained., Respiratory function will remain adequate., Patient/ family verbilizes understanding of procedure., Procedure tolerated without complication., Recovers from procedure without complications.. 14:27:12 Patient received from Med II to [facility] 2 Alert and oriented. Tansferred to table in Supine position. 14:27:13 Warm blankets applied, and piero hugger turned on for patient comfort. 14:27:13 Correct patient and procedure confirmed by team. 14:27:13 ECG and BP/O2 sat monitors applied to patient. 14:32:39 Vital chart was started 14:32:49 0.9% NaCl 100 ml/hr I.V. was administered by Germaine Thomson RN; used for procedure; Verbal order read back and verified. 14:32:56 Oxygen 2 l/min etCO2 Nasal cannula was administered by Germaine Thomson RN; used for procedure; Verbal order read back and verified. 14:33:01 Lidocaine 2% 20ml vial added to field was administered by Rivera Meredith MD; for local anesthetic; Verbal order read back and verified. 14:33:05 Heparin Flush Bag (1000units/500ml NS) 2 bags added to field was administered by Rivera Meredith MD; used for procedure; Verbal order read back and verified. 14:34:11 Baseline sample Acquired. 14:34:16 Rhythm: sinus rhythm 14:34:17 Full Disclosure recording started 14:34:22 H&P Date Dictated: 11/12/2019 New H&P dictated by physician.. 14:35:44 Pre-procedure instructions explained to patient. 14:35:45 Pre-op teaching completed and patient verbalized understanding. 14:35:50 Family in patients room. 14:35:52 Patient NPO since Midnight. 14:35:54 Is the patient allergic to Iodine/contrast media? No. 14:35:55 Was the patient premedicated? Yes 14:35:57 Is patient on blood thinner?No 14:36:11 Patient diabetic? No. 14:36:13 Previous problem with sedation/anesthesia? No ? 14:36:15 Snore? Yes 14:36:16 Sleep apnea? No 14:36:16 Deviated septum? No 14:36:17 Opens mouth fully? Yes 14:36:18 Sticks out tongue? Yes 14:36:20 Airway obstruction? No ? 14:36:22 Dentures? No ? 14:36:26 Pre procedure: left dorsailis pedis pulse 2+ Normal; easily identifiable; not easily obliterated 14:36:29 Pre procedure: left dorsailis pedis pulse 2+ Normal; easily identifiable; not easily obliterated 14:36:32 Patient pain scale 0/10 ?. 14:36:38 IV patent on arrival in left forearm with 0.9% NaCl at [facility]. 14:36:44 Lab results completed and on chart. 14:36:49 Stress Test: no; N/A ? 14:40:41 Risk of Mortality: 0.1 14:40:44 Risk of blood transfusion: 1.2 14:40:48 Risk of MADDI: 1.5 14:41:02 Right groin area was prepped with chlora-prep and draped in sterile fashion 14:41:03 Alarms reviewed by R. N. 14:41:04 Sharps counted by scrub and verified by R.N. 14:41:06 Physician arrived 14:41:06 --------ALL STOP TIME OUT------ 14:41:06 Final Timeout: patient, procedure, and site verified with staff and physician. All members of the team are in agreement. 14:41:08 Right groin site verified by team. 14:41:12 Fire Safety Assessment: A--An alcohol-based skin anteseptic being used preoperatively., C--Open oxygen or nitrous oxide is being used., D--An ESU, laser, or fiber-optic light is being used. 14:41:15 Physical assessment completed. ASA score P 2 - A patient with mild systemic disease as per Rivera Meredith MD. 14:41:22 1) 90+ Normal kidney functon but urine findings or structural abnormalities or genetic trait point to kidney disease. 14:41:25 Maximum allowable contrast dose (3.7 X eGFR X 0.75)249 ml. 14:41:30 Sedation plan: IV Moderate Sedation Medication:Versed, Fentanyl 14:41:39 Use device set Femoral Dx 14:41:40 ACIST Syringe (34082) opened to sterile field. 14:41:40 Bag Decanter (2002S) opened to sterile field. 14:41:40 Medline Cath Pack ([id number]) opened to sterile field. 14:41:41 ACIST Hand Control (71941) opened to sterile field. 14:41:42 ACIST Manifold (13029) opened to sterile field. 14:41:42 DIAGNOSTIC Multipack 5Fr catheter set (VQ1751) opened to sterile field. 14:41:43 Tegaderm 4 x 4 (1626W) opened to sterile field. 14:41:44 SHEATH 5FR Shiner (QOG770) opened to sterile field. 14:41:47 EMERALD Guide Wire (238-740) opened to sterile field. 14:41:51 Procedure started. 14:42:14 Versed 2 mg I.V. was administered by Germaine Thomson RN; for sedation; Verbal order read back and verified. 14:42:27 Fentanyl 50 mcg I.V. was administered by Germaine Thomson RN; for sedation; Verbal order read back and verified. 14:43:59 Local anesthetic to right femoral artery with Lidocaine 2% by Rivera Meredith MD.INITIAL ACCESS ONLY 14:44:09 A 5 Fr sheath was inserted into the Right Femoral artery 14:44:21 Zero performed for pressure channel P1 14:44:38 A MULTIPACK Pigtail 5 Fr catheter was advanced over the wire and used for LV Angiography. 14:46:08 LV hemodynamics recorded. 14:46:10 LV gram done using RODRIGUEZ 14:46:12 Injector settings: Ml/sec: 5, Volume: 15, 14:46:17 EF : 60 % 14:46:19 Catheter removed. 14:46:24 A MULTIPACK JL 4.0 5Fr catheter was advanced over the wire and used for Left Coronary Angiography. 14:47:07 LCA angiography performed. 14:47:09 Injector settings: Ml/sec: 3, Volume: 6, 14:48:11 Catheter removed. 14:48:24 A MULTIPACK 3DRC 5Fr catheter was advanced over the wire and used for Right Coronary Angiography. 14:48:27 RCA angiography performed. 14:48:29 Injector settings: Ml/sec: 3, Volume: 6, 14:48:36 Bilateral renal angiography performed. 14:48:54 Sheath removed intact; hemostasis achieved with Exoseal to the Right Femoral artery. 14:48:57 EXOSEAL 5Fr (EX500) opened to sterile field. 14:48:59 Procedure ended.(Physican Out) 14:49:31 Fluoroscopy time 01.80 minutes. 14:49:40 Fluoroscopy dose: 747 mGy 14:49:40 Flurop Dose total: 747 14:49:48 Dose Area Product 39785 mGy/cm. 14:49:52 Contrast amount:Isovue 300 45ml. 14:49:58 Maximum allowable dose exceeded? No. 14:49:59 Sharps counted by scrub and verified by R.N. 14:50:00 Insertion/operative site no bleeding no hematoma. 14:50:04 Post-op/insertion site Right Femoral artery dressed using a 4 x 4 and Tegaderm. 14:50:05 Post Procedure Pulses reassessed and unchanged 14:50:08 Post procedure rhythm: unchanged. 14:50:11 Estimated blood loss: 5 ml 14:50:12 Post procedure instruction explained to patient.Patient verbalizes understanding. 14:50:13 Patient needs reinforcement of post procedure teaching. 14:50:29 Procedure type changed to Cath procedure, Diagnostic procedure, C, [facility] w/Coronaries, Sedation Charges, Moderate Sedation up to 15 minutes, Peripheral Cath Diagnostic Procedure, Customs Import Specialist Peripheral Procedures, Renal Arteriogram 14:50:55 Procedure and supply charges have been captured, reviewed, submitted and are correct. 14:50:59 Procedure Complication : No complications 14:51:02 Vital chart was stopped 14:51:04 [facility] Findings: mild to moderate CAD (<70%) 14:51:05 Operative report dictated upon procedure completion. 14:51:06 See physician's report for complete and final results. 14:51:08 Report given to [facility]. 14:51:11 Patient transfered to [facility] with Stretcher. 14:51:13 Procedure ended. 14:51:13 Full Disclosure recording stopped 14:51:20 End room use (Document Last) 14:56:36 End room use (Document Last) 14:57:04 End room use (Document Last) Device Usage Item Name Manufacture Quantity Catalog Hospital Part Current Minimal L ot# / Number Charge Number Stock Stock Serial# Code ACIST Acist 1 19960 492941 803234 007344 20 Syringe Medical (40095) Systems Inc Bag Microtek 1 2001S 451084 88506 950454 5 Decanter Medical Inc. () Medline Medline 1 [id number] 634203 22990 758832 5 Cath Pack ([id number]) ACIST Hand Acist 1 22957 110103 009716 004398 5 Control Medical (43758) Systems Inc ACIST Acist 1 73976 641633 430559 415895 5 Manifold Medical (88114) Systems Inc DIAGNOSTIC Cardinal 1 ZY8245 344418 71178 673388 30 Multipack Health 5Fr catheter set (EW1928) Tegaderm 4 3M 1 1626W 737354 548559 908795 5 x 4 (1626W) SHEATH 5FR Terumo 1 QIK254 971937 693780 233024 5 Shiner (NEC697) EMERALD Cardinal 1 346-930 385218 186467 626452 5 Guide Wire Health (502-529) MULTIPACK Cardinal 1 635568 5 Pigtail 5 Health Fr catheter MULTIPACK Cardinal 1 493270 5 JL 4.0 5Fr Health catheter MULTIPACK Cardinal 1 070039 5 3DRC 5Fr Health catheter EXOSEAL 5Fr Cardinal 1 EX500 326748 064150 356605 10 (EX500) Health Signature Audit [place] Stage Time Signature Unsigned Intra-Procedure 11/12/2019 Florina Salomon 2:56:36 PM RT(R) Intra-Procedure 11/12/2019 Germaine Thomson 2:57:04 PM RN Intra-Procedure 11/12/2019 Rivera Meredith 2:58:25 PM Signatures Performing Physician : Signature : Rivera Meredith MD Date : Time : Monitor : Florina Aime RT Signature : Date : Time : Nurse : Germaine Thomson RN Signature : Date : Time : [address] [place] [address]
[~2019-11-11 17:28] MED LIST changes: -NORMODYNE / TR100 MG PO; -NORMODYNE / TR300 MG PO; -NORVASC10 MG PO; -NORVASC5 MG PO
[2019-11-11] MEDS ORDERED: NORMODYNE / TR100 MG PO (17:34)
[2019-11-11] MEDS ORDERED: NORVASC5 MG PO (17:34)
[2019-11-11 17:56] LABS: BASOPHILS 0.1 % (0-2); EOSINOPHILS 1.6 % (0-7); HEMATOCRIT 38.7 % (36.0-48.0); HEMOGLOBIN 12.4 g/dL (12-16); IMMATURE GRANULOCYTES 0.3 % (0-5); LYMPHOCYTES 39.5 % (15-50); MCH 28.8 pg (26.0-34.0); MEAN PLATELET VOLUME 8.6 fL (7.4-10.4); NEUTROPHILS 41.5 % (40-80); PLATELET COUNT 270 10x3/uL (130-400); RDW 14.5 % (11.5-14.5); WBC 6.8 10x3/uL (4.8-10.8)
[2019-11-11 18:06] LABS: INR 0.92 (0.85-1.17); PROTIME 12.4 SECONDS (11.6-15.0)
[2019-11-11 18:07] LABS: CALC OSMOLALITY 270 mosm/kg (275-300); CARBON DIOXIDE 25.9 mmol/L (21.0-32.0); CHLORIDE - SERUM 102 mmol/L (98-107); CREATININE - SERUM 0.9 mg/dL (0.6-1.3); GLUCOSE 95 mg/dL (74-106); POTASSIUM - SERUM 3.9 mmol/L (3.5-5.1); SODIUM 136 mmol/L (136-145); UREA NITROGEN 10 mg/dL (7-18); eGFR NON AFRICAN AMERICAN 72 mL/min (90-120)
[2019-11-11 18:21] VITALS: BP 129/107
[2019-11-11 18:24] LABS: ALBUMIN 3.3 g/dL (3.4-5.0); ALKALINE PHOSPHATASE 91 U/L (30-120); ALT (SGPT) 17 U/L (10-68); BILIRUBIN - TOTAL 0.14 mg/dL (0.2-1.3); CKMB 0.2 U/L (0.0-3.6); CREATINE KINASE 60 UL (21-215); PROTEIN - SERUM 7.1 g/dL (6.4-8.2); TROPONIN-I < 0.017 ng/mL (0.000-0.060)
[2019-11-11 18:31] VITALS: BP 118/84
[2019-11-11 18:44] VITALS: BP 118/91
[2019-11-11 18:55] VITALS: BP 127/85
--- NOTE | 2019-11-11 20:55 | NUR ---
PT REQUESTING PAIN MEDICATION, EDP NOTIFIED.
[2019-11-11 21:32] LABS: CREATINE KINASE 57 UL (21-215)
[2019-11-11 21:33] LABS: TROPONIN-I < 0.017 ng/mL (0.000-0.060)
[2019-11-11] MEDS ORDERED: NORVASC10 MG PO (23:10)
[2019-11-11] MEDS ORDERED: NORMODYNE / TR300 MG PO (23:11)
[2019-11-11 23:34] VITALS: BP 154/93; BMI 40.3
[2019-11-12 00:30] VITALS: BP 142/90
[2019-11-12 05:13] LABS: HEMATOCRIT 37.5 % (36.0-48.0); MCH 28.6 pg (26.0-34.0); MCV 89.5 fL (80.0-100.0); MEAN PLATELET VOLUME 9.1 fL (7.4-10.4); PLATELET COUNT 259 10x3/uL (130-400); RBC 4.19 10x6/uL (4.00-5.40); RDW 14.6 % (11.5-14.5); WBC 6.3 10x3/uL (4.8-10.8)
[2019-11-12 05:18] LABS: PROTIME 13.1 SECONDS (11.6-15.0)
[2019-11-12 05:26] LABS: APTT 48.7 SECONDS (22.8-39.4)
[2019-11-12 05:55] LABS: CALC OSMOLALITY 268 mosm/kg (275-300); CARBON DIOXIDE 24.5 mmol/L (21.0-32.0); CHLORIDE - SERUM 101 mmol/L (98-107); CKMB 0.5 U/L (0.0-3.6); CREATINE KINASE 55 UL (21-215); CREATININE - SERUM 0.7 mg/dL (0.6-1.3); GLUCOSE 85 mg/dL (74-106); PHOSPHOROUS 2.8 mg/dL (2.5-4.9); PRO BNP 22 pg/mL (0-125); SODIUM 136 mmol/L (136-145); THYROID STIMULATING HORMONE 3.21 uIU/mL (0.36-3.74); TROPONIN-I < 0.017 ng/mL (0.000-0.060); UREA NITROGEN 8 mg/dL (7-18); eGFR NON AFRICAN AMERICAN > 90 mL/min (90-120)
[2019-11-12 05:56] VITALS: BP 120/85
[2019-11-12 05:58] LABS: POTASSIUM - SERUM 3.2 mmol/L (3.5-5.1)
--- NOTE | 2019-11-12 07:21 | NUR ---
ALERT AND ORIENTED.C/O OF CHEST PAIN AT A 6 AND REQUESTED PAIN MED. MORPHINE 4 MG IV GIVEN FOR RELIEF. TELEMERTY SHOWS SR 79. SL TO RIGHT HAND AND LEFT AC. UP AB SUSI. WILL MONITOR
[2019-11-12 08:18] LABS: CKMB 0.2 U/L (0.0-3.6); CREATINE KINASE 54 UL (21-215); TROPONIN-I < 0.017 ng/mL (0.000-0.060)
[2019-11-12 08:58] VITALS: Ht 162.6 cm; Wt 106.6 kg
[2019-11-12 09:01] VITALS: BP 124/81
[2019-11-12 09:32] LABS: CHOL - HDL RATIO 6.9 ratio (2.3-4.1); LDL-HDL RATIO 3.5 ratio (1.5-3.5)
[2019-11-12 10:43] LABS: EOSINOPHILS 1 % (0-7); LYMPHOCYTES 48 % (15-50); MONOCYTES 8 % (2-11); NEUTROPHILS 43 % (40-80)
[2019-11-12 10:44] LABS: ANISOCYTOSIS OCC; PLATELET ESTIMATE NORMAL
[2019-11-12 13:23] VITALS: BP 98/59
--- NOTE | 2019-11-12 15:26 | NUR ---
BACK FROM SENIOR CLINICAL RESEARCH SCIENTIST. RIGHT GROIN SOFT WITH DRSG DRY AND INTACT.PPP. V/S STABLE. SR UP WITH CALL LIGHT IN REACH
[2019-11-12 16:19] VITALS: BP 122/69
--- NOTE | 2019-11-12 16:40 | MORECARE ---
CASE MANAGEMENT DISCHARGE SUMMARY PATIENT: VINCENT NAGY UNIT: [id number] ADM DATE: 11/11/19 AGE: 44 : 77 SEX: F ROOM/BED: D.2113 AUTHOR: RADHA GAGE PHYSICIAN: REFERRING PHYSICIAN: PETER STANFORD MD DATE OF SERVICE: 11/12/19 Discharge Plan Patient Name: VINCENT NAGY Facility: [facility]:[place] : 1975 Planned Disposition: Home Anticipated Discharge Date: 11/12/19 Discharge Date: Expected LOS: 1 Initial Reviewer: [email or web address] Initial Review Date: 11/12/2019 Generated: 11/12/19 5:40 pm Coverage Notice Reviewer: [email or web address] Gabe Villarreal Notice Issued Date-Time: 11/12/2019 16:28 Notice Type: Medicare Outpatient Observation Notice Notice Delivered To: Patient Relationship to Patient: Piano Mechanic Name: Delivery Method: HAND - Hand Delivered Joelle Days: Prior Verbal Notification: Recipient Understood Notice: Yes Recipient Signature: Yes Med Rec Note Co-signed by Attending: Coverage Notice Comment: Patient Name: VINCENT NAGY Page [id number] at 1640 All edits/amendments must be made on the electronic document DICTATION DATE: 11/12/19 1640 LEGAL RECEPTIONIST: MARGE 11/12/19 1640 RPT#: [id number] DC DATE: STATUS: ADM IN [facility] [address] [place] [address] END OF REPORT
--- NOTE | 2019-11-12 18:39 | NUR ---
PT DISCHARGED. IV DCD WITH TIP INTACT. TO PRIVATE CAR PER WHEELCHAIR
== END 2019-11-12 18:41 | disposition home or self-care (01) ==
LOC: D.ER 17:28 → D.M2 21:52 → OBSVTIME 21:52 → D.M2 11-12 18:41
PROVIDERS: Emergency Medicine; Family Medicine; Internal Medicine Interventional Cardiology; ADMIT Internal Medicine Nephrology; ATTEND Internal Medicine Nephrology
DX: R07.9 Chest pain, unspecified (principal); E87.6 Hypokalemia; I10 Essential (primary) hypertension; E78.5 Hyperlipidemia, unspecified; K21.9 Gastro-esophageal reflux disease without esophagitis; F17.213 Nicotine dependence, cigarettes, with withdrawal; F41.9 Anxiety disorder, unspecified; G89.29 Other chronic pain; M54.9 Dorsalgia, unspecified; E66.01 Morbid (severe) obesity due to excess calories; Z68.41 Body mass index [BMI] 40.0-44.9, adult

== ENCOUNTER 2020-02-02 10:03 | Outpatient (CLI) | payer MEDICARE ==
[~2020-02-02] VITALS: Ht 162.6 cm; Wt 109.1 kg
[~2020-02-02 10:03] MED LIST changes: +NORMODYNE / TR100 MG PO; +NORMODYNE / TR300 MG PO; +NORVASC10 MG PO; +NORVASC5 MG PO
[2020-02-02 11:13] VITALS: Ht 162.6 cm; Wt 109.1 kg
== END 2020-02-02 11:32 | disposition home or self-care (01) ==
LOC: D.OPS 10:03
PROVIDERS: ATTEND Family Medicine
DX: J20.9 Acute bronchitis, unspecified (principal); E66.9 Obesity, unspecified; Z68.30 Body mass index [BMI] 30.0-30.9, adult; J44.9 Chronic obstructive pulmonary disease, unspecified; I10 Essential (primary) hypertension; Z72.0 Tobacco use; E78.5 Hyperlipidemia, unspecified; R68.89 Other general symptoms and signs; K21.9 Gastro-esophageal reflux disease without esophagitis; E87.6 Hypokalemia